=== PATIENT | male | born 1955 | race Native Hawaiian/Other Pacific Islander ===

== ENCOUNTER → 2017-09-11 07:53 | Outpatient (CLI) | payer OTHER, MEDICAID, SELFPAY ==
--- NOTE | 2017-09-11 | DI.MRI.S_ITS ---
PROCEDURE: MR CERVICAL SPINE WO CON INDICATIONS: Cervical Radiculopathy and pain TECHNIQUE: Noncontrast sagittal T1 spin echo and T2 fast spin echo, sagittal STIR, foraminal oblique sagittal T2 fast spin echo, and axial gradient echo or T2 fast spin echo through the cervical spine. COMPARISON: [facility], MR, C-SPINE WITHOUT CONTRAST, 02/13/2014, 11:06. FINDINGS: Image quality: Excellent. Alignment and Curvature: There is normal bony alignment. Bone Marrow: Marrow demonstrates normal overall signal. Anterior fusion of C3-C7 has been performed, as before. Spinal Cord: Visualized spinal cord has normal size. Focal region of high T2 signal intensity within the left mid cord at the C2 level is unchanged. No cerebellar tonsillar herniation. Paraspinous Soft Tissues: No paravertebral masses. Prevertebral soft tissues are normal in thickness. C2-C3: Disc desiccation and mild diffuse disc bulge. Bilateral facet hypertrophy. Mild canal stenosis. Mild foraminal stenosis bilaterally. No change. C3-C4: Status post fusion. Bilateral facet hypertrophy. Mild canal stenosis. Mild foraminal stenosis bilaterally. No change. C4-C5: Status post fusion. Bilateral facet hypertrophy. No significant canal stenosis. Moderate foraminal stenosis bilaterally. No change. C5-C6: Status post fusion. Bilateral facet hypertrophy. Mild canal stenosis. Mild foraminal stenosis bilaterally. No change. C6-C7: Status post fusion. Bilateral facet and uncovertebral hypertrophy. Mild canal stenosis. Moderate left and no right foraminal stenosis. No change. C7-T1: Disc desiccation. No significant canal, nor foraminal stenosis. IMPRESSION: 1. C3-C7 fusion, with mild multilevel canal stenoses throughout the fused levels. 2. Multilevel degenerative disc and facet disease. 3. Multilevel foraminal stenoses, worst on the left at C6-C7. Dictated by: Tarik Coronado M.D. on 09/11/2017 at 9:27 Approved by: Tarik Coronado M.D. on 09/11/2017 at 9:31
== END ==
PROVIDERS: PCP Physician Assistant Medical; Visit Provider Family Medicine
DX: M48.02 Spinal stenosis, cervical region (principal); Z98.1 Arthrodesis status; M50.30 Other cervical disc degeneration, unspecified cervical region; M47.812 Spondylosis without myelopathy or radiculopathy, cervical region; M99.71 Connective tissue and disc stenosis of intervertebral foramina of cervical region
CPT/HCPCS: 72141

== ENCOUNTER → 2017-12-05 08:26 | Outpatient (CLI) | payer OTHER, MEDICAID, SELFPAY ==
--- NOTE | 2017-12-05 | DI.CT.S_ITS ---
PROCEDURE: CT CERVICAL SPINE WO CON INDICATIONS: CERVICAL RADICULOPATHY PAINS DOWN ARMS TECHNIQUE: Noncontrast 3 mm thick sections acquired from the skull base to the T4 level. Sagittal and coronal reformats were then constructed. For radiation dose reduction, the following was used: automated exposure control, adjustment of mA and/or kV according to patient size. COMPARISON: [facility], MR, MR CERVICAL SPINE WO CON, 09/11/2017, 8:44. [facility], MR, C-SPINE WITHOUT CONTRAST, 02/13/2014, 11:06. [facility], CT, C-SPINE WITHOUT CONTRAST, 10/28/2012, 14:50. FINDINGS: Image quality: Excellent. Bones: No fractures or dislocations. Visualized superior ribs are intact. Extensive postoperative hardware changes are seen, from C3-C7. The screws appear well placed. The fixation plate anteriorly is well seated. No findings of hardware failure or hardware loosening can be seen in this patient. Disc spacers are seen throughout the fused region. C2-C3: Bridging anterior osteophytes are seen at this level, as on series 5 image 39. Minimal loss of disc height is seen. A mild degree of generalized disc osteophyte complex is seen. Moderate facet joint hypertrophy is seen. Minimal bilateral neural foraminal narrowing is seen. Mild central canal narrowing is seen. No significant change from the prior. C3-C4: Moderate generalized disc osteophyte complex is seen. Moderate facet joint hypertrophy is seen. There is mild to moderate right-sided and at least moderate left-sided neural foraminal narrowing. Moderate central canal narrowing is seen. These imaging findings are similar to the prior MRI images. C4-C5: There is moderate right-sided and moderate to severe left-sided neural foraminal narrowing seen. Moderate central canal narrowing is seen. When comparison is made with the prior examination, these findings are similar. C5-C6: Moderate generalized disc osteophyte complex is seen. There is mild to moderate left-sided and no significant right-sided neural foraminal narrowing seen. Mild central canal narrowing is seen. No significant change from the prior. C6-C7: Moderate generalized disc osteophyte complex is seen. There is moderate to severe left-sided and no significant right-sided neural foraminal narrowing seen. Mild central canal narrowing is seen. When comparison is made with the prior examination, these findings are similar. C7-T1: Bridging anterior osteophytes are seen at this level. Moderate loss of disc height is seen. No significant neural foraminal or central canal narrowing are seen. No significant change from the prior. Soft tissues: Prevertebral soft tissues are normal in thickness. No paravertebral hematomas. No apical pneumothoraces. Emphysematous changes are seen at the lung apices. IMPRESSION: Intact anterior hardware is seen from C3-C7. Multiple levels of degenerative change are seen, which are overall most prominent at C6-C7, with moderate to severe left-sided neural foraminal narrowing. Bridging anterior osteophytes are seen at C2-C3 and C7-T1. Dictated by: Michael Soares M.D. on 12/05/2017 at 9:08 Approved by: Michael Soares M.D. on 12/05/2017 at 9:20
== END ==
PROVIDERS: PCP Physician Assistant Medical; Visit Provider Neurological Surgery
DX: M50.30 Other cervical disc degeneration, unspecified cervical region (principal); M54.12 Radiculopathy, cervical region; M25.78 Osteophyte, vertebrae
CPT/HCPCS: 72125

== ENCOUNTER → 2018-11-12 08:08 | Outpatient (CLI) | payer OTHER, MEDICAID, SELFPAY ==
--- NOTE | 2018-11-12 | DI.RAD.S_ITS ---
PROCEDURE: XR CERVICAL SPINE 4V OR 5V INDICATIONS: Post laminectomy syndrome TECHNIQUE: 5 views of the cervical spine acquired. COMPARISON: [facility], CT, CT CERVICAL SPINE WO CON, 12/05/2017, 8:26. [facility], MR, MR CERVICAL SPINE WO CON, 09/11/2017, 8:44. [facility], MR, C-SPINE WITHOUT CONTRAST, 02/13/2014, 11:06. CR, SPINE CERVICAL COMP W/ FL/EX, 09/01/2013, 10:36. CR, SPINE CERVICAL 2 OR 3VW, 12/30/2012, 13:26. CR, SPINE CERVICAL 2 OR 3VW, 11/22/2012, 8:09. FINDINGS: Bones: No fractures or dislocations to the T1 level. Oblique images demonstrate no bony foraminal stenoses. There is expected postoperative alignment after anterior fusion bleeding from C3-C7. Soft tissues: No prevertebral soft tissue swelling. IMPRESSION: Normal alignment established after anterior fusion plating as discussed, no evidence for abnormal subluxation or penetration of fixation screws into the neural foramen or spinal canal. Dictated by: Houston Hannon M.D. on 11/15/2018 at 10:30 Approved by: Houston Hannon M.D. on 11/15/2018 at 10:32
== END ==
PROVIDERS: PCP Family Medicine; Visit Provider Physical Medicine & Rehabilitation
DX: M96.1 Postlaminectomy syndrome, not elsewhere classified (principal)
CPT/HCPCS: 72050

== ENCOUNTER → 2018-11-29 07:22 | Outpatient (CLI) | payer OTHER, MEDICAID, SELFPAY ==
[2018-11-29 08:09] LABS: Hematocrit 47.9 % (41-53); Hemoglobin 16.9 g/dL (13.5-17.5); Mean Corpuscular HGB Conc 35.3 % (30-36); Mean Corpuscular Hemoglobin 33.8 PG (26-34); Mean Corpuscular Volume 95.9 fL (80-100); Platelet Count 134 X10^3/uL (150-400); Red Blood Cell Count 4.99 X10^6/uL (4.5-5.9); Red Cell Distribution Width 14.2 % (11.6-14.8); White Blood Cell Count 4.5 X10^3/uL (4.5-11.0)
== END ==
PROVIDERS: PCP Family Medicine; Visit Provider Plastic Surgery
DX: Z01.810 Encounter for preprocedural cardiovascular examination (principal); G56.01 Carpal tunnel syndrome, right upper limb
CPT/HCPCS: 36415; 85027; 93005; 93010

== ENCOUNTER → 2019-01-03 06:56 | Outpatient (CLI) | payer OTHER, MEDICAID, SELFPAY ==
--- NOTE | 2019-01-03 | DI.RAD.S_ITS ---
PROCEDURE: XR THORACIC SPINE 3V INDICATIONS: THORACIC PAIN TECHNIQUE: 30 views of the thoracic spine were acquired. COMPARISON: None. FINDINGS: Bones: No fractures or dislocations. No suspicious bony lesions. Multilevel degenerative endplate sclerosis and spurring. Prominent anterior flowing osteophytes suggest diffuse idiopathic skeletal hyperostosis. Partially visualized cervical spine hardware Diffuse facet arthropathy. Lateral curvature of the spine. Soft tissues: No paravertebral stripe thickening. IMPRESSION: No fracture. Diffuse discogenic changes. Dictated by: Benny Salazar M.D. on 01/03/2019 at 10:07 Approved by: Benny Salazar M.D. on 01/03/2019 at 10:16
== END ==
PROVIDERS: PCP Family Medicine; Visit Provider Family Medicine
DX: M54.6 Pain in thoracic spine (principal); M47.814 Spondylosis without myelopathy or radiculopathy, thoracic region
CPT/HCPCS: 72072

== ENCOUNTER → 2020-03-31 09:14 | Outpatient (CLI) | payer OTHER, MEDICAID, SELFPAY ==
--- NOTE | 2020-03-31 09:15 | DI.RAD.S_ITS ---
PROCEDURE: XR CERVICAL SPINE 4V OR 5V INDICATIONS: UPDATE IMAGING TECHNIQUE: 5 views of the cervical spine were acquired. COMPARISON: [facility], CR, SPINE CERVICAL COMP W/ FL/EX, 09/01/2013, 10:36. [facility], CR, XR CERVICAL SPINE 4V OR 5V, 11/12/2018, 8:16. FINDINGS: Bones: No fractures or dislocations to the T1 level. No suspicious bony lesions. Loss of lordosis which could be related to muscle spasm, rigidity or simply positional. Prior multilevel ACDF from the C3 through the C7 level with fixation plates, screws and bone grafts in expected unchanged positions. Oblique views demonstrate mild bilateral multilevel mid and lower cervical spine neural foraminal narrowing. . Soft tissues: Prevertebral soft tissues are normal in thickness. IMPRESSION: 1. Stable multilevel ACDF. 2. Bilateral neural foraminal narrowing. Dictated by: Jarrod STAHL Interpreted: Alexandria Colby MD on 03/31/2020 at 10:13 Approved by: Alexandria Colby M.D. on 03/31/2020 at 16:58
== END ==
PROVIDERS: PCP Internal Medicine; Referring Provider Physical Medicine & Rehabilitation; Visit Provider Physical Medicine & Rehabilitation
DX: R51.9 Headache, unspecified; M48.02 Spinal stenosis, cervical region; M79.18 Myalgia, other site; G89.29 Other chronic pain; Z98.1 Arthrodesis status
CPT/HCPCS: 20552; 72050; J1040

== ENCOUNTER → 2020-10-13 13:45 | Outpatient (CLI) | payer OTHER, MEDICAID, SELFPAY ==
[2020-10-13 14:52] LABS: Alanine Aminotransferase 15 IU/L (<50); Aspartate Aminotransferase 27 IU/L (17-59); BUN Creatinine Ratio 21.1 (6-22); Blood Urea Nitrogen 15 mg/dL (9-20); Estimated Glomerular Filt Rate > 60.0 mL/min (>60)
== END ==
PROVIDERS: PCP Internal Medicine; Referring Provider Physician Assistant Medical; Visit Provider Physician Assistant Medical
DX: B35.1 Tinea unguium (principal)
CPT/HCPCS: 36415; 82565; 84450; 84460; 84520

== ENCOUNTER 2020-11-09 08:11 | Emergency (ER) | payer OTHER, MEDICAID, SELFPAY ==
[2020-11-09 08:32] VITALS: BP 174/84; PULSE 80; RESP 16; TEMP 36.8; O2SAT 99; BMI 26.5
--- NOTE | 2020-11-09 08:35 | ED.NEUROSD ---
HPI - Neuro Symptoms/Deficit General Chief Complaint: Weakness Stated Complaint: falls, balance is out, back/neck really hurting Time Seen by Provider: 11/09/20 08:19 Source: patient Mode of arrival: Wheelchair Limitations: no limitations History of Present Illness HPI Narrative: The patient is a 65-year-old male fusion in 2013 is with cervicogenic headaches currently being treated for chronic neck pain with dry needling by PCP. He is a bit confused on his time but his legs gave out at least 2 ago. He has noticed that it is difficult for him to stand and get around he has since fallen a couple of times. He has obvious left-sided facial droop. He feels like his left side is weaker than the right which certainly is. He also complains that he lost the taste buds in his mouth. He says nothing taste right. It all seemed to happen at about the same time His he denies any fever or chills no chest pain shortness of breath nausea or vomiting. Patient actually states that he had cervical fusion multiple years ago and broke his neck at that time he had a left-sided weakness however today and the last few days the left side has been significantly worse. Onset (ago): day(s) Location: left face, left arm, left leg and ataxia Relieving factors: none Related Data Previous Rx's Medication Instructions Recorded Disabled Parking #1 each 11/17/19 zolpidem 10 mg tablet 10 mg PO BEDTIME #30 tab 09/28/20 fluticasone propionate 0.05 % 1 applic TOP BID #60 g 10/04/20 topical cream Allergies Allergy/AdvReac Type Severity Reaction Status Date / Time No Known Drug Allergies Allergy Verified 10/28/20 10:58 Review of Systems Review of Systems Narrative: GENERAL: Denies chills, fatigue, malaise, fever, sweats, travel HEENT: Denies sinus pain, ear pain, sore throat, difficulty swallowing, neck pain RESPIRATORY: Denies dyspnea, cough, wheezing, hemoptysis, sputum. CARDIOVASCULAR: Denies chest pain, palpitations, orthopnea, edema GASTROINTESTINAL: Denies nausea, vomiting, abdominal pain, diarrhea, constipation, melena. : Denies dysuria, frequency, incontinence, hematuria, urinary retention, flank pain. MUSCULOSKELETAL: Denies weakness, joint pain, or bony pain SKIN: No rash, no erythema, no pruritus NEUROLOGIC: See HPI PSYCHIATRIC: No concerning psychosocial issues. 12 point review of systems is negative except for those stated above and HPI Patient History Medical History (Updated 11/09/20 @ 12:28 by Octavia Sales DO) Cervicogenic headache Chronic neck pain COPD (chronic obstructive pulmonary disease) Essential hypertension Myofascial pain Surgical History (Updated 08/30/20 @ 13:54 by Gildardo Napier MD) S/P cervical spinal fusion Status post cervical spinal fusion Family History Mother No problems noted. Social History Smoking Status: Current every day smoker Smoking Status: Current every day smoker Exam Initial Vital Signs Initial Vital Signs: Vital Signs Temperature 98.3 F 11/09/20 08:32 Pulse Rate 80 11/09/20 08:32 Respiratory Rate 16 11/09/20 08:32 Blood Pressure 174/84 H 11/09/20 08:32 Pulse Oximetry 99 11/09/20 08:32 GENERAL: Alert 65-year-old male HEENT: Head atraumatic,EOMI, pupils reactive, left facial droop CARDIOVASCULAR: Regular rate and rhythm without murmurs, rubs or gallops. RESPIRATORY: Breath sounds equal bilaterally, no wheezes rales or rhonchi. ABDOMEN: Soft, nontender. Normoactive bowel sounds all 4 quadrants. No guarding or rebound. EXTREMITIES: Normal range of motion, no clubbing or edema. Neurovascularly intact NEUROLOGICAL: Alert and oriented x4. Good pdatzj-ev-imqe, good iehm-wv-kqov, left leg drift does not go to gurney left arm drift does not go to gurney, no dysarthria or aphasia, sensation in tact to soft touch slightly decreased in left leg, no visual changes, left facial droop SKIN: Warm, dry, no laceration, no petechiae, no rashes or lesions. Scores NIH Stroke Scale Level of Conciousness: Alert, keenly responsive Ask month/age: Answers both questions correctly. Open/close eyes, close hand: Performs both tasks correctly Best gaze horizontal: Normal Visual mercado: No visual loss Facial palsy: Partial paralysis, total or near total paralysis of lower face Left arm drift: Drifts down, not to bed Right arm drift: No drift for full 10 sec Left leg drift: Drifts down, not to bed Right leg drift: No drift for full 5 sec Limb ataxia: Absent Sensory on face/arms/legs: Mild to moderate sensory loss, can tell touch Best language: No aphasia, normal Dysarthria: Normal Extinction or inattention: No abnormality Total NIH Stroke scale score: 5 Course Orders Ordered: ED Orders 11/09/20 10:50 Urine Drug Screen, Rapid Stat 11/09/20 12:31 CT angio head and neck Stat Discontinued Medications Aspirin (Aspirin 81 Mg Chew Tab) 324 mg PO NOW ONE Stop: 11/09/20 08:34 Last Admin: 11/09/20 09:22 Dose: 324 mg Documented by: CVANCE Vital Signs Vital signs: Vital Signs - 8 hr 11/09/20 12:54 11/09/20 14:15 Pulse Rate 79 100 H Respiratory Rate 20 18 Blood Pressure 157/90 H 171/98 H Pulse Oximetry 98 98 MDM - Neuro Symptoms/Deficit Lab Data Result diagrams: 11/09/20 08:31 11/09/20 08:31 Labs: Lab Results 11/09/20 11/09/20 11/09/20 Range/Units 08:31 08:31 08:31 WBC 7.0 (4.5-11.0) X10^3/uL RBC 5.09 (4.5-5.9) X10^6/uL Hgb 17.1 (13.5-17.5) g/dL Hct 49.6 (41-53) % MCV 97.4 (80-100) fL MCH 33.5 (26-34) PG MCHC 34.4 (30-36) % RDW 13.7 (11.6-14.8) % Plt Count 121 L (150-400) X10^3/uL Neut % (Auto) 55.9 (50-75) % Lymph % (Auto) 32.9 (25-40) % Desha % (Auto) 5.6 (3-14) % Eos % (Auto) 5.2 H (2-4) % Baso % (Auto) 0.4 (0-2) % Neut # (Auto) 3900 (3843-6686) /uL Lymph # (Auto) 2300 (3789-5761) /uL Desha # (Auto) 400 (0-900) /uL Eos # (Auto) 400 (0-450) /uL Baso # (Auto) 0 (0-100) /uL PT (10.1-12.7) SECONDS INR (0.9-1.3) APTT (26.4-36.2) SECONDS Sodium 138 (137-145) mmol/L Potassium 4.4 (3.4-5.1) mmol/L Chloride 109 H (98-107) mmol/L Carbon Dioxide 25 (22-32) mmol/L BUN 14 (9-20) mg/dL Creatinine 0.70 (0.66-1.25) mg/dL Estimated GFR > 60.0 (>60) mL/min BUN/Creatinine Ratio 20.0 (6-22) Glucose 98 (80-110) mg/dL Calcium 9.2 (8.4-10.2) mg/dL Total Bilirubin 0.8 (0.2-1.3) mg/dL AST 32 (17-59) IU/L ALT 18 (<50) IU/L Alkaline Phosphatase 86 (38-126) U/L Total Creatine Kinase 92 (55-170) U/L CK-MB (CK-2) TNP CK-MB (CK-2) Rel Index TNP Troponin I < 0.012 (0.01-0.034) ng/mL Total Protein 7.2 (6.3-8.2) g/dL Albumin 4.2 (3.5-5.0) g/dL Globulin 3.0 (1.7-4.1) g/dL Albumin/Globulin Ratio 1.4 (1.0-2.8) Urine Color Cancelled Urine Appearance Cancelled Urine pH Cancelled Ur Specific [place] Cancelled Urine Protein Cancelled Urine Glucose (UA) Cancelled Urine Ketones Cancelled Urine Occult Blood Cancelled Urine Nitrate Cancelled Urine Bilirubin Cancelled Urine Urobilinogen Cancelled Ur Leukocyte Esterase Cancelled Urine RBC Cancelled Urine WBC Cancelled Ur Squamous Epith Cells Cancelled Ur Transition Epith Cell Cancelled Ur Renal Epithelial Cell Cancelled Calcium Oxalate Crystal Cancelled Uric Acid Crystals Cancelled Triple Phos Crystals Cancelled Other Crystals Cancelled Amorphous Sediment Cancelled Urine Bacteria Cancelled Hyaline Casts Cancelled Granular Casts Cancelled RBC Casts Cancelled WBC Casts Cancelled Other Casts Cancelled Urine Mucus Cancelled Urine Trichomonas Cancelled Urine Yeast Cancelled Urine Sperm Cancelled Ur Culture Indicated? Cancelled Micro UA Comment Cancelled U Opiates 300ng/mL cut (Negative) Ur Oxycodone Screen (Negative) Urine Methadone Screen (Negative) Ur Barbiturates Screen (Negative) U Tricyclic Antidepress (Negative) Ur Phencyclidine Scrn (Negative) Ur Amphetamines Screen (Negative) U Methamphetamines Scrn (Negative) Ur MDMA Scrn (Ecstasy) (Negative) U Benzodiazepines Scrn (Negative) Urine Cocaine Screen (Negative) U Marijuana (THC) Screen (Negative) SARS-CoV-2 (PCR) (Negative) 11/09/20 11/09/20 11/09/20 Range/Units 08:49 09:02 10:50 WBC (4.5-11.0) X10^3/uL RBC (4.5-5.9) X10^6/uL Hgb (13.5-17.5) g/dL Hct (41-53) % MCV (80-100) fL MCH (26-34) PG MCHC (30-36) % RDW (11.6-14.8) % Plt Count (150-400) X10^3/uL Neut % (Auto) (50-75) % Lymph % (Auto) (25-40) % Desha % (Auto) (3-14) % Eos % (Auto) (2-4) % Baso % (Auto) (0-2) % Neut # (Auto) (1519-4082) /uL Lymph # (Auto) (2483-1063) /uL Desha # (Auto) (0-900) /uL Eos # (Auto) (0-450) /uL Baso # (Auto) (0-100) /uL PT 11.7 (10.1-12.7) SECONDS INR 1.1 (0.9-1.3) APTT 33 (26.4-36.2) SECONDS Sodium (137-145) mmol/L Potassium (3.4-5.1) mmol/L Chloride (98-107) mmol/L Carbon Dioxide (22-32) mmol/L BUN (9-20) mg/dL Creatinine (0.66-1.25) mg/dL Estimated GFR (>60) mL/min BUN/Creatinine Ratio (6-22) Glucose (80-110) mg/dL Calcium (8.4-10.2) mg/dL Total Bilirubin (0.2-1.3) mg/dL AST (17-59) IU/L ALT (<50) IU/L Alkaline Phosphatase (38-126) U/L Total Creatine Kinase (55-170) U/L CK-MB (CK-2) CK-MB (CK-2) Rel Index Troponin I (0.01-0.034) ng/mL Total Protein (6.3-8.2) g/dL Albumin (3.5-5.0) g/dL Globulin (1.7-4.1) g/dL Albumin/Globulin Ratio (1.0-2.8) Urine Color Urine Appearance Urine pH Ur Specific [place] Urine Protein Urine Glucose (UA) Urine Ketones Urine Occult Blood Urine Nitrate Urine Bilirubin Urine Urobilinogen Ur Leukocyte Esterase Urine RBC Urine WBC Ur Squamous Epith Cells Ur Transition Epith Cell Ur Renal Epithelial Cell Calcium Oxalate Crystal Uric Acid Crystals Triple Phos Crystals Other Crystals Amorphous Sediment Urine Bacteria Hyaline Casts Granular Casts RBC Casts WBC Casts Other Casts Urine Mucus Urine Trichomonas Urine Yeast Urine Sperm Ur Culture Indicated? Micro UA Comment U Opiates 300ng/mL cut Negative (Negative) Ur Oxycodone Screen Negative (Negative) Urine Methadone Screen Negative (Negative) Ur Barbiturates Screen Negative (Negative) U Tricyclic Antidepress Negative (Negative) Ur Phencyclidine Scrn Negative (Negative) Ur Amphetamines Screen Negative (Negative) U Methamphetamines Scrn Negative (Negative) Ur MDMA Scrn (Ecstasy) Negative (Negative) U Benzodiazepines Scrn Negative (Negative) Urine Cocaine Screen Negative (Negative) U Marijuana (THC) Screen Negative (Negative) SARS-CoV-2 (PCR) Negative (Negative) Point of Care Testing Glucose POC 78 Urine Dip Bedside Urine Glucose Negative Bedside Urine Bilirubin - Negative Bedside Urine Ketone - Negative Urine Specific [place] 1.010 Bedside Urine Occult Blood +/- Bedside Urine pH 6.5 Bedside Urine Protein - Negative Bedside Urine Urobilinogen +/- 1mg Bedside Urine Nitrite - Negative Bedside Urine Leukocytes - Negative Esterase Imaging Data CTA - brain/neck: Radiologist's Impression: PROCEDURE: CT ANGIO HEAD AND NECK INDICATIONS: CVA TECHNIQUE: Pre-contrast 4.5 mm thick sections acquired from the foramen magnum to the vertex. After the administration of intravenous contrast, 1 mm thick sections acquired from the aortic arch through the [place] of [place]. Post-contrast 4.5 mm thick sections then re-acquired from the foramen magnum to the vertex. 3-dimensional oxhbgmj-bdmcvbkgq-eziusiniyy (MIP) and/or volume rendering reformats were acquired of the central intracranial vasculature and neck separately. COMPARISON: [facility], MR, MR STROKE, 11/09/2020, 11:09. [facility], CT, HEAD WITHOUT CONTRAST, 01/17/2013, 14:38. CT, ANGIO NECK WITH CONTRAST, 10/31/2012, 13:46. [facility], CT, HEAD WITHOUT CONTRAST, 10/28/2012, 14:50. [facility], MR, BRAIN W&W/O CONTRAST, 08/15/2012, 9:42. FINDINGS: Image quality: Excellent. BRAIN: CSF spaces: Ventricles are normal in size and shape. Basal cisterns are patent. No extra-axial fluid collections. Brain: Hypodensities noted in the right frontal and parietal subcortical white matter compatible with known acute/subacute infarcts. No midline shift. No intracranial bleeds or masses. Du-white matter interface appears intact. Skull and face: Calvarium and facial bones appear intact, without suspicious lesions. Orbits appear normal. Sinuses: Mucosal thickening noted in the left maxillary sinus. The mastoids are clear. HEAD CT ANGIOGRAPHY: Anterior circulation: Intracranial internal carotid arteries are normal in size and flow. The flow within the paired anterior cerebral arteries is normal and symmetric. The flow within the left middle cerebral artery is normal. Thrombus identified in the distal M1 segment of the right middle cerebral artery which causes partial occlusion. There is diminished flow in the M2 branches of the right middle cerebral artery distal to the thrombus in the distal M1 segment.. The anterior communicating artery is seen. No aneurysms are seen. Posterior circulation: Visualized portions of the vertebral arteries demonstrate normal caliber, and join to form a normal appearing basilar artery. Flow within the posterior cerebral arteries is normal and symmetric. No aneurysms are seen. Dural sinuses demonstrate normal postcontrast enhancement. NECK CT ANGIOGRAPHY: Carotid system: The great vessels demonstrate a conventional anatomy as they arise from the aortic arch. The origins of the common carotid arteries appear patent. The common carotid arteries demonstrate normal caliber and courses. Atherosclerotic calcifications noted in the origins of the internal carotid arteries bilaterally which causes less than 50% stenosis of the vessels. Posterior circulation: The origins of the vertebral arteries both appear widely patent. The more superior extracranial portions of both vertebral arteries also demonstrate normal courses and calibers. They join to form a normal appearing basilar artery. Soft tissues: Visualized neck soft tissues demonstrate no suspicious abnormalities. Emphysematous changes noted in the lung apices. Bones: No suspicious bony lesions. Spine degenerative disc disease and facet arthropathy. Status post C3-C7 ACDF. Visualized cervical spine appears normally aligned. IMPRESSION: 1. Acute/subacute right frontal and right parietal infarcts. 2. No intracranial hemorrhage. 3. Partially occlusive thrombus in the distal M1 segment of the right middle cerebral artery with reduced flow in the M2 branches of the right middle cerebral artery distal to the thrombus. 4. Less than 50% stenosis of the origins of the internal carotid arteries. Area 5. Vertebral arteries are fully patent. Findings discussed with Dr. Sales on November 09, 2020 at 1:17 p.m.. Any quantitative measurements of stenosis were performed using NASCET criteria. Dictated by: Abi Garcia MD, PhD on 11/09/2020 at 12:51 MR Stroke: Radiologist's Impression: PROCEDURE: MR STROKE Pre- and post-contrast brain MRI, non-contrast brain MR angiogram, pre- and postcontrast neck MR angiogram INDICATIONS: left sided weakness x 2 days TECHNIQUE: Brain: Noncontrast axial T1 spin echo, axial T2 fast spin echo, sagittal and axial FLAIR, coronal T2 fast spin echo, axial gradient echo, axial diffusion and ADC through the brain. After the administration of contrast, axial 3D VIBE of the cranial vasculature and brain. Brain MRA: Non-contrast 3-D time of flight MR angiogram, with multiple mnalzyz-ihpkavkxo-rdwmuqspsa (MIP) reformats performed. Neck MRA: Axial and sagittal TruFISP through the neck. Coronal dynamic MR angiogram during administration of contrast in the arterial and venous phases, with 3-dimenstional mbebxab-ywukvkpeq-okkmicwcwf (MIP) reformats constructed from subtraction images. COMPARISON: CT, ANGIO NECK WITH CONTRAST, 10/31/2012, 13:46. MR, BRAIN WITHOUT CONTRAST, 09/25/2012, 18:10. [facility], MR, BRAIN W&W/O CONTRAST, 08/15/2012, 9:42. FINDINGS: Image quality: Excellent. BRAIN: CSF spaces: Ventricles are normal in size and shape. Basal cisterns are patent. No extra-axial fluid collections. Brain: No intracranial bleeds or mass effects. Du-white matter interface is normal. Diffusion weighted images show areas of hypointensity within the right frontal lobe extending into the posterior parietal occipital lobe. These areas demonstrate corresponding hypointense ADC signal as well as hyperintense T2/FLAIR signal. Brainstem appears normal. Normal intravascular flow voids are present. No abnormal intracranial enhancement. Skull and face: Calvarial marrow signal is normal. Orbits appear normal. Sinuses: Sinuses demonstrate mild scattered areas of mucosal thickening most notably maxillary and ethmoid sinuses. BRAIN MR ANGIOGRAM: Anterior circulation: Intracranial internal carotid arteries are normal in size and enhancement. Anterior cerebral artery is patent. Left A1 segment is hypoplastic suggestive of congenital variation. Levm-us-tqicfl images demonstrate no visualized signal within the distal M1 segment on the right. No stenoses, occlusions, or aneurysms. Posterior circulation: The visualized portions of the vertebral arteries demonstrate normal caliber, and join to form a normal appearing basilar artery. The flow within the posterior cerebral arteries is normal and symmetric. No stenoses, occlusions, or aneurysms. NECK MR ANGIOGRAM: Carotids: Great vessels demonstrate a conventional anatomy as they arise from the aortic arch. The origins of the common carotid arteries appear patent. The calibers and courses of both common carotid arteries are normal. The bifurcation regions appear normal bilaterally. The internal carotid arteries demonstrate normal course and caliber. Posterior circulation: The origins of the vertebral arteries appear patent. More superior portions of both vertebral arteries demonstrate normal course and caliber, and join to form a normal appearing basilar artery. Miscellaneous: Subclavian arteries appear patent. Pre-contrast images through the neck show no soft tissue abnormalities. IMPRESSION: 1. Extensive restricted diffusion within the right frontal and parietal occipital lobes, consistent with acute/subacute ischemia. 2. Loss of signal within the distal right M1 segment on agmx-aw-rmetrw images most consistent with occlusion, although slow flow cannot be definitively excluded. CTA is recommended as indicated. 3. No areas of hemodynamically significant stenosis, vascular occlusion or aneurysmal dilation within the neck vasculature. Dictated by: Rajani Mariano M.D. on 11/09/2020 at 11:49 ECG Data Interpretation: Normal sinus rhythm rate 62 NJ interval 156 QRS [address] changes MDM Narrative Medical decision making narrative: CT scanner went down just prior to arrival for the next 4 hours. Patient has been having symptoms ongoing for an unknown number of days. He certainly is not a tPA candidate. Will get an MRI. He is not on any anticoagulation he did not have any head trauma during his falls. Although she did fall into a coffee table once but did not even his head or lose consciousness. He states that his legs simply are weak and gave out on him. At this time I do not see is beneficial to transfer him for noncontrasted head CT, MR should be available soon. MRI does confirm stroke, in CT angio is it confirms occlusion of M1 with thrombus. Patient has had symptoms greater than 24 hours. He certainly is not a tPA candidate I do not believe him to be a large vessel occlusion is candidate. Hospitalist is called to evaluate but does recommend talking with Neurology in regards to large vessel occlusion even though he is out of the window 1400 Dr. Goyal, tele Stroke Neurology updated on patient's symptoms test results. He evaluates patient himself over the tele stroke. He will consult with Interventional Neurology. May need CT perfusion scan before candidate for thrombectomy but thinks it may be possible despite it being multiple days. He returns phone call and states that patient is a candidate and recommended transfer to [address] I have explained patient's signs and symptoms in test results to him. Confirming that he has a stroke. He is in quite a bit of denial, and confused. His seems to understand the severity of it. I have explained treatment options including thrombectomy versus staying at [facility] for further testing physical therapy and likely rehab. He is able to ambulate here but does need some assistance. He is quite adamant that he needs to talk to his family. He and his parents are very close. I offered them to come to the emergency department I have offered family conference call with me or not me included, he is not agreeable to that. He does not want to be transferred to [facility]. I have explained that this is likely a very small window where they would be able to do the thrombectomy. He and his are aware of permanent disability. At this time how he does not seem to care. I have also explained to both and patient that the stroke has probably not completed and will likely get worse. Have drawn pictures for them to help him understand. At this time he is adamant about leaving and going to talk to his family about options. I have explained to both he and his that they will be leaving against medical advice. They are welcome to return to the emergency department at any time. They were given discharge instructions. The patient is clinically sober, free from distracting injury, appears to have intact insight, judgment and reason. Does not meet criteria for involuntary hospitalization. Patient has the capacity to make decisions. [facility] has been canceled. Critical Care Time Critical Care Time Critical Care Time: Yes Total Critical Care Time: 120 Attestation: The high probability of a clinically significant, sudden or life threatening deterioration of the neurovascular system(s) required my full and direct attention, intervention and personal management. The aggregate critical care time was 120 minutes. This time is in addition to time spent performing reported procedures but includes the following: [x] Data Review and interpretation [x] Patient assessment and monitoring of vital signs [x] Documentation [x] Medication orders and management Discharge Plan Departure Patient Disposition: Left Against Medical Advice Clinical Impression: CVA (cerebral vascular accident) Instructions: DI for Stroke-Ischemic Activity Restrictions/Additional Instructions: You are having a very large stroke. It will likely progress to the point where you have permanent disability and inability to move your left arm and left leg. You are leaving against medical advice. You were offered admission to this hospital along with rehab further medical treatment and further studies. You were also offered transfer to [facility] for possible treatment and retrieval of blood clot in your brain causing this stroke You may return to the emergency department at any time however the procedure will unlikely be available. Prescriptions: No Action zolpidem 10 mg tablet 10 mg PO BEDTIME Qty: 30 RF: 1 fluticasone propionate 0.05 % cream 1 applic TOP BID Qty: 60 RF: 1 (DME) Disabled Parking Qty: 1 RF: 0 Referrals: Guevara Schneider DO [Primary Care Provider] - Stand Alone Forms: Against Medical Advice
[2020-11-09 08:45] LABS: Add Manual Diff / Slide Review NO; Basophils Absolute Auto 0 /uL (0-100); Basophils Percent Auto 0.4 % (0-2); Eosinophils Absolute Auto 400 /uL (0-450); Eosinophils Percent Auto 5.2 % (2-4); Hematocrit 49.6 % (41-53); Hemoglobin 17.1 g/dL (13.5-17.5); Lymphocytes Absolute Auto 2300 /uL (1100-4500); Lymphocytes Percent Auto 32.9 % (25-40); Mean Corpuscular HGB Conc 34.4 % (30-36); Mean Corpuscular Hemoglobin 33.5 PG (26-34); Mean Corpuscular Volume 97.4 fL (80-100); Monocytes Absolute Auto 400 /uL (0-900); Monocytes Percent Auto 5.6 % (3-14); Neutrophils Absolute Auto 3900 /uL (1500-7000); Neutrophils Percent Auto 55.9 % (50-75); Platelet Count 121 X10^3/uL (150-400); Red Blood Cell Count 5.09 X10^6/uL (4.5-5.9); Red Cell Distribution Width 13.7 % (11.6-14.8)
[2020-11-09 08:53] LABS: Alanine Aminotransferase 18 IU/L (<50); Albumin 4.2 g/dL (3.5-5.0); Albumin Globulin Ratio 1.4 (1.0-2.8); Alkaline Phosphatase 86 U/L (38-126); Aspartate Aminotransferase 32 IU/L (17-59); Bilirubin Total 0.8 mg/dL (0.2-1.3); Blood Urea Nitrogen 14 mg/dL (9-20); Calcium 9.2 mg/dL (8.4-10.2); Carbon Dioxide 25 mmol/L (22-32); Chloride 109 mmol/L (98-107); Creatine Kinase 92 U/L (55-170); Estimated Glomerular Filt Rate > 60.0 mL/min (>60); Glucose 98 mg/dL (80-110); HEMOLYSIS 17 (0-50); Potassium 4.4 mmol/L (3.4-5.1); Sodium 138 mmol/L (137-145); Total Protein 7.2 g/dL (6.3-8.2)
[2020-11-09 09:03] LABS: Troponin I < 0.012 ng/mL (0.01-0.034)
[2020-11-09 09:08] LABS: INR 1.1 (0.9-1.3); Prothrombin Time 11.7 SECONDS (10.1-12.7)
[2020-11-09 09:11] LABS: PTT Partial Thromboplastin Tim 33 SECONDS (26.4-36.2)
[2020-11-09] MEDS: ASPIRIN 81 MG CHEW TAB 324 MG PO (09:22)
[2020-11-09 09:47] VITALS: BP 171/87; PULSE 69; RESP 20; O2SAT 99
[2020-11-09 10:02] LABS: COVID19 - ADMIT (NP swab/PCR) Negative (Negative)
[2020-11-09 11:11] LABS: UR Morphine/Opiate cutoff 300 Negative (Negative); Ur Creatinine Normal (Normal); Ur Specific Gravity Normal (Normal); Urine Amphetamines Negative (Negative); Urine Barbiturates Negative (Negative); Urine Benzodiazepines Negative (Negative); Urine Cocaine Negative (Negative); Urine MDMA Negative (Negative); Urine Methadone Negative (Negative); Urine Methamphetamines Negative (Negative); Urine Oxycodone Negative (Negative); Urine Phencyclidine Negative (Negative); Urine Tetrahydrocannabinol Negative (Negative); Urine Tricyclic Antidepressant Negative (Negative); Urine pH Normal (Normal)
--- NOTE | 2020-11-09 12:31 | DI.CT.S_ITS ---
PROCEDURE: CT ANGIO HEAD AND NECK INDICATIONS: CVA TECHNIQUE: Pre-contrast 4.5 mm thick sections acquired from the foramen magnum to the vertex. After the administration of intravenous contrast, 1 mm thick sections acquired from the aortic arch through the [place] of [place]. Post-contrast 4.5 mm thick sections then re-acquired from the foramen magnum to the vertex. 3-dimensional getezei-gwilbgghd-pftdkmtxgw (MIP) and/or volume rendering reformats were acquired of the central intracranial vasculature and neck separately. COMPARISON: [facility], MR, MR STROKE, 11/09/2020, 11:09. [facility], CT, HEAD WITHOUT CONTRAST, 01/17/2013, 14:38. CT, ANGIO NECK WITH CONTRAST, 10/31/2012, 13:46. [facility], CT, HEAD WITHOUT CONTRAST, 10/28/2012, 14:50. [facility], MR, BRAIN W&W/O CONTRAST, 08/15/2012, 9:42. FINDINGS: Image quality: Excellent. BRAIN: CSF spaces: Ventricles are normal in size and shape. Basal cisterns are patent. No extra-axial fluid collections. Brain: Hypodensities noted in the right frontal and parietal subcortical white matter compatible with known acute/subacute infarcts. No midline shift. No intracranial bleeds or masses. Du-white matter interface appears intact. Skull and face: Calvarium and facial bones appear intact, without suspicious lesions. Orbits appear normal. Sinuses: Mucosal thickening noted in the left maxillary sinus. The mastoids are clear. HEAD CT ANGIOGRAPHY: Anterior circulation: Intracranial internal carotid arteries are normal in size and flow. The flow within the paired anterior cerebral arteries is normal and symmetric. The flow within the left middle cerebral artery is normal. Thrombus identified in the distal M1 segment of the right middle cerebral artery which causes partial occlusion. There is diminished flow in the M2 branches of the right middle cerebral artery distal to the thrombus in the distal M1 segment.. The anterior communicating artery is seen. No aneurysms are seen. Posterior circulation: Visualized portions of the vertebral arteries demonstrate normal caliber, and join to form a normal appearing basilar artery. Flow within the posterior cerebral arteries is normal and symmetric. No aneurysms are seen. Dural sinuses demonstrate normal postcontrast enhancement. NECK CT ANGIOGRAPHY: Carotid system: The great vessels demonstrate a conventional anatomy as they arise from the aortic arch. The origins of the common carotid arteries appear patent. The common carotid arteries demonstrate normal caliber and courses. Atherosclerotic calcifications noted in the origins of the internal carotid arteries bilaterally which causes less than 50% stenosis of the vessels. Posterior circulation: The origins of the vertebral arteries both appear widely patent. The more superior extracranial portions of both vertebral arteries also demonstrate normal courses and calibers. They join to form a normal appearing basilar artery. Soft tissues: Visualized neck soft tissues demonstrate no suspicious abnormalities. Emphysematous changes noted in the lung apices. Bones: No suspicious bony lesions. Spine degenerative disc disease and facet arthropathy. Status post C3-C7 ACDF. Visualized cervical spine appears normally aligned. IMPRESSION: 1. Acute/subacute right frontal and right parietal infarcts. 2. No intracranial hemorrhage. 3. Partially occlusive thrombus in the distal M1 segment of the right middle cerebral artery with reduced flow in the M2 branches of the right middle cerebral artery distal to the thrombus. 4. Less than 50% stenosis of the origins of the internal carotid arteries. Area 5. Vertebral arteries are fully patent. Findings discussed with Dr. Sales on November 09, 2020 at 1:17 p.m.. Any quantitative measurements of stenosis were performed using NASCET criteria. Dictated by: Abi Garcia MD, PhD on 11/09/2020 at 12:51 Approved by: Abi Garcia MD, PhD on 11/09/2020 at 13:20
[2020-11-09 12:54] VITALS: BP 157/90; PULSE 79; RESP 20; O2SAT 98
[2020-11-09 14:15] VITALS: BP 171/98; PULSE 100; RESP 18; O2SAT 98
--- NOTE | 2020-11-09 14:26 | PC.NURSE ---
Witness to patient and Dr Sales speaking at length about pt's condition and worsening stroke. Pt decided he wants to leave AMA due to not being able to speak to his family in person. Offered family conference over the phone and offered to have family members come to have a family conference with family and physician. Pt declining offers. states my family is very close and i need to speak to them before making decisions Advised that his stroke will worsen per neurologist and emergency physician and he can end up with permanent disability, paralysis, etc. Pt aware and agreeable. DC'd out of ED with wheelchair and mother. AMA paperwork signed.
== END 2020-11-09 14:31 | disposition left against medical advice (07) ==
PROVIDERS: Emergency Provider Emergency Medicine; PCP Family Medicine
DX: I63.9 Cerebral infarction, unspecified (principal); R27.0 Ataxia, unspecified; Z20.822 Contact with and (suspected) exposure to COVID-19
CPT/HCPCS: 70496; 70498; 70548; 70553; 80053; 80305; 81003; 82550; 82962; 84484; 85025; 85610; 85730; 87635; 93005; 93010; 99285; 99291; 99292; C9803; Q9967

== ENCOUNTER 2021-01-24 09:45 | Outpatient (RCR) | payer OTHER, MEDICAID, SELFPAY ==
--- NOTE | 2020-11-15 17:46 | PT.OIE ---
Current Diagnoses Cerebral infarction, unspecified (11/15/20) Foot drop, left foot (11/15/20) Paralytic gait (11/15/20) Other abnormalities of gait and mobility (11/15/20) Weakness (11/15/20) Past Medical History (Last Updated 11/11/20 @ 09:24 by Guevara Schneider DO) Cervicogenic headache Chronic neck pain COPD (chronic obstructive pulmonary disease) Essential hypertension Myofascial pain S/P cervical spinal fusion Status post cervical spinal fusion Weakness of left side of body Past Surgical History (Last Updated 08/30/20 @ 13:54 by Gildardo Napier MD) S/P cervical spinal fusion Status post cervical spinal fusion Visit Care Team Role Provider Type Guevara Schneider DO Attending Provider Physician Primary Care Provider Referring Provider Specialty: [facility] Address: [address] [place] [address] Email: Physical Therapy Initial Evaluation PT-OP-A Visit Information Start: 11/15/20 17:00 Freq: Status: Active Protocol: Document 11/15/20 16:00 DCW (Rec: 11/15/20 17:20 DCW [id number]) Out-Patient Physical Therapy Visit Information Visit Information Visit Type Initial Evaluation Visit Start Time 16:00 Visit Stop Time 16:50 Total Visit Minutes 50 Visit Number 1 Number of INSTRUMENT SHOP SUPERVISOR Visits 0 Evaluation Information Evaluation Date 11/15/20 PT-OP-B Current Condition Start: 11/15/20 17:00 Freq: Status: Active Protocol: Document 11/15/20 16:00 DCW (Rec: 11/15/20 17:20 DCW [id number]) Current Condition History of Current Condition Onset Date 11/09/20 Current Complaints CVA, weakness, imbalance History of Current Condition Pt is a 65 year old male six days s/p CVA. Pt came to [facility] ED on 11/09/20 with multiple falls, confusion , left-sided weakness, left facial droop, and sudden loss of taste. MRI showed restricted diffusion of R frontal, parietal, and occipital lobes, and pt was diagnosed with a CVA. Attending physician attempted to transfer pt to [facility] for treatment, however pt at that time refused and left the hospital AMA. Pt followed up with his PCP on 11/11/20, who referred him to PT for stroke rehab. Pt arrives to PT in a wheelchair. Notes he frequently walks without an assistive device at home, however uses his for stability. Pt reports his balance has been affected, and his left side is weak. Pt notes no sensory changes in his left side, but is unsure if he has noticed any visual changes. Prior Treatments and Tests Brain MRI: IMPRESSION: 1. Extensive restricted diffusion within the right frontal and parietal occipital lobes, consistent with acute/subacute ischemia. 2. Loss of signal within the distal right M1 segment on [id number] images most consistent with occlusion, although slow flow cannot be definitively excluded. CTA is recommended as indicated. 3. No areas of hemodynamically significant stenosis, vascular occlusion or aneurysmal dilation within the neck vasculature. Per: Rajani Mariano M.D. on 2020 Head/Neck CTA: IMPRESSION: 1. Acute/subacute right frontal and right parietal infarcts. 2 . No intracranial hemorrhage. 3. Partially occlusive thrombus in the distal M1 segment of the right middle cerebral artery with reduced flow in the M2 branches of the right middle cerebral artery distal to the thrombus. 4. Less than 50% stenosis of the origins of the internal carotid arteries. Area 5. Vertebral arteries are fully patent. Per: Abi Garcia MD, PhD on 11/09/2020 Treatment Goals Patient/Caregiver Goals Pt wants to get back to mobilizing independently. Prior Functional Status Baseline Function- ADL's Independent Baseline Function- Mobility Independent PT-OP-C Subjective Start: 11/15/20 17:20 Freq: Status: Active Protocol: Document 11/15/20 16:00 DCW (Rec: 11/15/20 17:22 DCW [id number]) OP-PT Subjective Patient Comments Patient Comments I want to get to work and get back to normal. PT-OP-G Mobility & Gait Start: 11/15/20 17:00 Freq: Status: Active Protocol: Document 11/15/20 16:00 DCW (Rec: 11/15/20 17:20 DCW [id number]) OP Mobility Evaluation Transfers Sit to Stand SBA, Pt required verbal cues to move footrests on w/c OP Gait Assessment Gait Gait Assistance Required: Minimum Assistance Distance (Feet) 10 Able to Maintain Weight Bearing Status Yes During Gait Assistive Devices Assistive Device None,Gait Belt,Large Based Quad Cane,Front Wheeled Walker ,Julio C Walker Gait Deviations General Gait Pattern Antalgic,Ataxic,Decreased Stride Length,Decreased Feet Clearance,Flexed Trunk,Step-to Gait Factors Limiting Gait Function Factors Limiting Gait Function Abnormal Tonal Influences, Decreased Activity Tolerance, Decreased Strength, Incoordination,Poor Balance, Poor Safety Awareness Comments Gait Comments Pt ambulated out into the hallway using no AD, then repeated using FWW, Hemiwalker , and LBQC. Pt showed most stability and comfort with hemiwalker, followed by LBQC. Pt showed decreased safety with FWW and no AD. Ambulates with left drop foot. PT-OP-H Neuro Start: 11/15/20 17:20 Freq: Status: Active Protocol: Document 11/15/20 16:00 DCW (Rec: 11/15/20 17:22 DCW [id number]) Sensation Evaluation Gross Sensation Gross Sensation WNL Comments Summary Comments Left visual extinction Coordination Evaluation Lower Extremity Tests Left Alternate Heel to Knee; Heel to Toe Test Moderate Impairment Heel on [place] Test Moderate Impairment Foot Tapping Test Severe Impairment PT-OP-M Strength Start: 11/15/20 17:00 Freq: Status: Active Protocol: Document 11/15/20 16:00 DCW (Rec: 11/15/20 17:20 DCW [id number]) Hip Strength Hip Manual Muscle Testing Right Flexion (L2) 5 Normal Extension (S1) 5 Normal Abduction 5 Normal Adduction 5 Normal External Rotation 5 Normal Internal Rotation 5 Normal Left Flexion (L2) 4 Good Extension (S1) 4- Good- Abduction 3 Fair Adduction 5 Normal External Rotation 4- Good- Internal Rotation 4- Good- Knee Strength Knee Manual Muscle Testing Right Flexion (S2) 5 Normal Extension (L3) 5 Normal Left Flexion (S2) 3+ Fair+ Extension (L3) 4- Good- Ankle/Foot Strength Ankle and Foot Manual Muscle Testing Right Dorsiflexion (L4) 5 Normal Plantarflexion (S1) 5 Normal Inversion 5 Normal Eversion (S1) 5 Normal Left Dorsiflexion (L4) 2 Poor Plantarflexion (S1) 2+ Poor+ Inversion 2 Poor Eversion (S1) 1 Trace PT-OP-T Assessment and Plan Start: 11/15/20 17:00 Freq: Status: Active Protocol: Document 11/15/20 16:00 DCW (Rec: 11/15/20 17:46 [facility] [id number]) Physical Therapy Assessment Rehab Potential Rehabilitation Potential Fair Evaluation Complexity Number of Personal Factors/Comorbidities 3 or More Number of Body Systems Impaired 4 or More Clinical Presentation at Evaluation Unstable Impairments Impairments Activity Tolerance,Balance, Coordination,Functional Activities,Functional Mobility ,Gait,Posture,Soft Tissue Mobility,Strength,Tone, Transfers,Visual Motor Goals Three Impairment Pt dispalys left visual extinction with bilateral stimulus presentation Analytical Chemistry Teacher Goal (LTG) Pt to complete RIVERA chart reading with a maximum of 5 mistakes in less than 3 minutes. LTG Duration 02/13/21 Two Impairment Significant left-sided weakness limits pt independence Analytical Chemistry Teacher Goal (LTG) Pt to increase L hip and knee MMT to at least 4/5 and ankle MMT to at least 3+/5 in all planes in order to increase independence with gait. LTG Duration 02/13/21 One Impairment Pt does not have an appropriate home exercse program Short Term Goal (STG) Pt to be independent and compliant with an appropriate HEP STG Duration 12/30/20 Assessment Summary Assessment Pt presents with multiple deficits 6 days s/p acute/ subacute ischemia of right frontal and parietal occipital lobes. Pt has left weakness, difficulty with balance, left foot drop, gait dysfunction, decreased coordination, and left visual extinction (a type of visual neglect where there is no perception of left stimulus when right stimulus is present). Pt also appears to have some decreased safety awareness, at the end of his appointment today attempted to get up from w/c without moving the footrests, because he forgot he was in a wheelchair and that he was supposed to ride it out to his car. Pt is very motivated to participate in therapy, and there may be some necessary management of unrealistic expectations. Pt did trial ambulation with multiple assistive devices, and pt demonstrated increased safety and comfort with a hemiwalker, which he and his reported they will work on getting. Pt should benefit from skilled therapy focusing on balance, gait, strength, and visual rehabilitation exercises. Physical Therapy Plan Frequency and Duration Frequency of Treatment 2x/Week Duration of Treatment 90 days Plan of Care Start Date 11/15/20 Plan of Care End Date 02/13/21 Therapeutic Interventions Therapeutic Interventions Balance Training,Coordination Training,Gait Training,Home Exercise Program,Manual Therapy,Neuromuscular Re- education,Patient/Caregiver Education,Self-Care/Home Management,Sensory Integration ,Soft Tissue Mobilization, Therapeutic Activities, Therapeutic Exercises, Wheelchair Management Other Referrals/Consults Referrals/Consults Recommended Pt would likely greatly benefit from a referral to Occupational Therapy. Next Visit Focus/Plan Next Note Type Treatment Note Next Visit Plan Complete Burgess and TUG, initiate strengthening, balance, and visual rehab exercises
--- NOTE | 2020-11-15 17:47 | PT.OPPOC ---
Physical, Occupational & Speech Therapy At [facility] Current Diagnoses Cerebral infarction, unspecified (11/15/20) Foot drop, left foot (11/15/20) Paralytic gait (11/15/20) Other abnormalities of gait and mobility (11/15/20) Weakness (11/15/20) Visit Care Team Role Provider Type Guevara Schneider DO Attending Provider Physician Primary Care Provider Referring Provider Specialty: [facility] Address: [address] [place] [address], [facility] Email: Plan Of Care PT-OP-T Assessment and Plan Start: 11/15/20 17:00 Freq: Status: Active Protocol: Document 11/15/20 16:00 DCW (Rec: 11/15/20 17:46 DCW [id number]) Physical Therapy Assessment Rehab Potential Rehabilitation Potential Fair Evaluation Complexity Number of Personal Factors/Comorbidities 3 or More Number of Body Systems Impaired 4 or More Clinical Presentation at Evaluation Unstable Impairments Impairments Activity Tolerance,Balance, Coordination,Functional Activities,Functional Mobility ,Gait,Posture,Soft Tissue Mobility,Strength,Tone, Transfers,Visual Motor Goals Three Impairment Pt dispalys left visual extinction with bilateral stimulus presentation Vice President Of Nursing Goal (LTG) Pt to complete RIVERA chart reading with a maximum of 5 mistakes in less than 3 minutes. LTG Duration 02/13/21 Two Impairment Significant left-sided weakness limits pt independence Detention Goal (LTG) Pt to increase L hip and knee MMT to at least 4/5 and ankle MMT to at least 3+/5 in all planes in order to increase independence with gait. LTG Duration 02/13/21 One Impairment Pt does not have an appropriate home exercse program Short Term Goal (STG) Pt to be independent and compliant with an appropriate HEP STG Duration 12/30/20 Assessment Summary Assessment Pt presents with multiple deficits 6 days s/p acute/ subacute ischemia of right frontal and parietal occipital lobes. Pt has left weakness, difficulty with balance, left foot drop, gait dysfunction, decreased coordination, and left visual extinction (a type of visual neglect where there is no perception of left stimulus when right stimulus is present). Pt also appears to have some decreased safety awareness, at the end of his appointment today attempted to get up from w/c without moving the footrests, because he forgot he was in a wheelchair and that he was supposed to ride it out to his car. Pt is very motivated to participate in therapy, and there may be some necessary management of unrealistic expectations. Pt did trial ambulation with multiple assistive devices, and pt demonstrated increased safety and comfort with a hemiwalker, which he and his reported they will work on getting. Pt should benefit from skilled therapy focusing on balance, gait, strength, and visual rehabilitation exercises. Physical Therapy Plan Frequency and Duration Frequency of Treatment 2x/Week Duration of Treatment 90 days Plan of Care Start Date 11/15/20 Plan of Care End Date 02/13/21 Therapeutic Interventions Therapeutic Interventions Balance Training,Coordination Training,Gait Training,Home Exercise Program,Manual Therapy,Neuromuscular Re- education,Patient/Caregiver Education,Self-Care/Home Management,Sensory Integration ,Soft Tissue Mobilization, Therapeutic Activities, Therapeutic Exercises, Wheelchair Management Other Referrals/Consults Referrals/Consults Recommended Pt would likely greatly benefit from a referral to Occupational Therapy. Next Visit Focus/Plan Next Note Type Treatment Note Next Visit Plan Complete Burgess and TUG, initiate strengthening, balance, and visual rehab exercises Plan of Care Dates Plan of Care Start Date 11/15/20 Plan of Care End Date 02/13/21 Electronically Signed by: Manjeet Cobos, PT 11/15/20 0101 Please Sign and Return: I have reviewed this Plan of Care and certify that the skilled therapy services above are required to meet the patient?s needs. Physician Signature Date Printed Name and Credentials Clinical Instructor Signature Printed Name and Credentials
--- NOTE | 2020-11-17 12:12 | PT.OTN ---
Current Diagnoses Cerebral infarction, unspecified (11/17/20) Foot drop, left foot (11/17/20) Paralytic gait (11/17/20) Other abnormalities of gait and mobility (11/17/20) Weakness (11/17/20) Physical Therapy Treatment Note PT-OP-A Visit Information Start: 11/15/20 17:00 Freq: Status: Active Protocol: Document 11/17/20 11:15 DCW (Rec: 11/17/20 12:10 DCW [id number]) Out-Patient Physical Therapy Visit Information Visit Information Visit Type Treatment Note Visit Start Time 11:15 Visit Stop Time 12:00 Total Visit Minutes 45 Visit Number 2 Number of WATCH ASSEMBLY INSPECTOR Visits 0 Evaluation Information Evaluation Date 11/15/20 PT-OP-B Current Condition Start: 11/15/20 17:00 Freq: Status: Active Protocol: Document 11/15/20 16:00 DCW (Rec: 11/15/20 17:20 DCW [id number]) Current Condition History of Current Condition Onset Date 11/09/20 Current Complaints CVA, weakness, imbalance History of Current Condition Pt is a 65 year old male six days s/p CVA. Pt came to [facility] ED on 11/09/20 with multiple falls, confusion , left-sided weakness, left facial droop, and sudden loss of taste. MRI showed restricted diffusion of R frontal, parietal, and occipital lobes, and pt was diagnosed with a CVA. Attending physician attempted to transfer pt to [facility] for treatment, however pt at that time refused and left the hospital AMA. Pt followed up with his PCP on 11/11/20, who referred him to for stroke rehab. Pt arrives to in a wheelchair. Notes he frequently walks without an assistive device at home, however uses his for stability. Pt reports his balance has been affected, and his left side is weak. Pt notes no sensory changes in his left side, but is unsure if he has noticed any visual changes. Prior Treatments and Tests Brain MRI: IMPRESSION: 1. Extensive restricted diffusion within the right frontal and parietal occipital lobes, consistent with acute/subacute ischemia. 2. Loss of signal within the distal right M1 segment on [id number] images most consistent with occlusion, although slow flow cannot be definitively excluded. CTA is recommended as indicated. 3. No areas of hemodynamically significant stenosis, vascular occlusion or aneurysmal dilation within the neck vasculature. Per: Rajani Mariano M.D. on 2020 Head/Neck CTA: IMPRESSION: 1. Acute/subacute right frontal and right parietal infarcts. 2 . No intracranial hemorrhage. 3. Partially occlusive thrombus in the distal M1 segment of the right middle cerebral artery with reduced flow in the M2 branches of the right middle cerebral artery distal to the thrombus. 4. Less than 50% stenosis of the origins of the internal carotid arteries. Area 5. Vertebral arteries are fully patent. Per: Abi Garcia MD, PhD on 11/09/2020 Treatment Goals Patient/Caregiver Goals Pt wants to get back to mobilizing independently. Prior Functional Status Baseline Function- ADL's Independent Baseline Function- Mobility Independent PT-OP-C Subjective Start: 11/15/20 17:20 Freq: Status: Active Protocol: Document 11/17/20 11:15 DCW (Rec: 11/17/20 12:10 DCW [id number]) OP-PT Subjective Patient Comments Patient Comments Pt appears to be slightly more emotional today with the realization of the extended recovery he is looking at, however very motivated to return as close as he can to his prior level of function. PT-OP-D Balance Start: 11/15/20 17:00 Freq: Status: Active Protocol: Document 11/17/20 11:15 DCW (Rec: 11/17/20 12:10 DCW [id number]) Balance Tests Burgess Balance Test Burgess Balance Test Score 43/56 Single Limb Standing Single Limb- Right 18 sec Single Limb- Left 2 sec Burgess Balance Assessment Evaluation Sitting to Standing Ability Independent w/out Hands Unsupported Stance Supervision- 2 minutes Sitting Unsupported, Feet on Floor Safely- 2 minutes Standing to Sitting Ability Assist, Control w/Hands Transfer Ability Safely, Minimal Hand Use Unsupported Stance- Eyes Closed Safely, 10 seconds Unsupported Stance- Eyes Open Independent, 1 minute Reaching Forward Standing Safely, 2 inches Pick- Up Object From Floor Independent/Safe Look Behind Shoulder - Standing Shifts Weight Unilateral Turning 360 Degrees Turns slowly, but safely Unsupported Stance, Alternating Feet on 4 Steps w/Supervision Stair Unsupported Tandem Stance Holds Tandem- 30 seconds Unilateral Leg Stance Lifts Leg/Unable to Hold Total Score Burgess Total Score (out of 56 points) 43 Burgess Impairment Rating 20 to 39% Impaired (Score 34- 44) PT-OP-E Functional Tests Start: 11/15/20 17:00 Freq: Status: Active Protocol: Document 11/17/20 11:15 DCW (Rec: 11/17/20 12:10 DCW [id number]) Functional Tests Timed Up and Go (TUG) Score 18.76 Comments 3-trial average (17.89, 19.08, 19.32) TUG Impairment Rating 80 to <100% Impaired (Score 18 -19) PT-OP-G Mobility & Gait Start: 11/15/20 17:00 Freq: Status: Active Protocol: Document 11/15/20 16:00 DCW (Rec: 11/15/20 17:20 DCW [id number]) OP Mobility Evaluation Transfers Sit to Stand SBA, Pt required verbal cues to move footrests on w/c OP Gait Assessment Gait Gait Assistance Required: Minimum Assistance Distance (Feet) 10 Able to Maintain Weight Bearing Status Yes During Gait Assistive Devices Assistive Device None,Gait Belt,Large Based Quad Cane,Front Wheeled Walker ,Julio C Walker Gait Deviations General Gait Pattern Antalgic,Ataxic,Decreased Stride Length,Decreased Feet Clearance,Flexed Trunk,Step-to Gait Factors Limiting Gait Function Factors Limiting Gait Function Abnormal Tonal Influences, Decreased Activity Tolerance, Decreased Strength, Incoordination,Poor Balance, Poor Safety Awareness Comments Gait Comments Pt ambulated out into the hallway using no AD, then repeated using FWW, Hemiwalker , and LBQC. Pt showed most stability and comfort with hemiwalker, followed by LBQC. Pt showed decreased safety with FWW and no AD. Ambulates with left drop foot. PT-OP-H Neuro Start: 11/15/20 17:20 Freq: Status: Active Protocol: Document 11/15/20 16:00 DCW (Rec: 11/15/20 17:22 DCW [id number]) Sensation Evaluation Gross Sensation Gross Sensation WNL Comments Summary Comments Left visual extinction Coordination Evaluation Lower Extremity Tests Left Alternate Heel to Knee; Heel to Toe Test Moderate Impairment Heel on Caldwell Test Moderate Impairment Foot Tapping Test Severe Impairment PT-OP-M Strength Start: 11/15/20 17:00 Freq: Status: Active Protocol: Document 11/15/20 16:00 DCW (Rec: 11/15/20 17:20 DCW [id number]) Hip Strength Hip Manual Muscle Testing Right Flexion (L2) 5 Normal Extension (S1) 5 Normal Abduction 5 Normal Adduction 5 Normal External Rotation 5 Normal Internal Rotation 5 Normal Left Flexion (L2) 4 Good Extension (S1) 4- Good- Abduction 3 Fair Adduction 5 Normal External Rotation 4- Good- Internal Rotation 4- Good- Knee Strength Knee Manual Muscle Testing Right Flexion (S2) 5 Normal Extension (L3) 5 Normal Left Flexion (S2) 3+ Fair+ Extension (L3) 4- Good- Ankle/Foot Strength Ankle and Foot Manual Muscle Testing Right Dorsiflexion (L4) 5 Normal Plantarflexion (S1) 5 Normal Inversion 5 Normal Eversion (S1) 5 Normal Left Dorsiflexion (L4) 2 Poor Plantarflexion (S1) 2+ Poor+ Inversion 2 Poor Eversion (S1) 1 Trace PT-OP-Q Treatments Start: 11/15/20 17:00 Freq: Status: Active Protocol: Document 11/17/20 11:15 DCW (Rec: 11/17/20 12:10 DCW [id number]) Gym Equipment Shuttle Recovery Unilateral Squats Resistance 25# Shuttle Recovery Platform Stable Bilateral Squats Resistance 75# Shuttle Recovery Platform Stable PT-OP-T Assessment and Plan Start: 11/15/20 17:00 Freq: Status: Active Protocol: Document 11/17/20 11:15 DCW (Rec: 11/17/20 12:10 DCW [id number]) Physical Therapy Assessment Impairments Impairments Activity Tolerance,Balance, Coordination,Functional Activities,Functional Mobility ,Gait,Posture,Soft Tissue Mobility,Strength,Tone, Transfers,Visual Motor Goals Three Impairment Pt dispalys left visual extinction with bilateral stimulus presentation Operations Planner Goal (LTG) Pt to complete RIVERA chart reading with a maximum of 5 mistakes in less than 3 minutes. LTG Duration 02/13/21 Two Impairment Significant left-sided weakness limits pt independence Operations Planner Goal (LTG) Pt to increase L hip and knee MMT to at least 4/5 and ankle MMT to at least 3+/5 in all planes in order to increase independence with gait. LTG Duration 02/13/21 One Impairment Pt does not have an appropriate home exercse program Short Term Goal (STG) Pt to be independent and compliant with an appropriate HEP STG Duration 12/30/20 Assessment Summary Assessment Scored fairly well on Burgess today, 43/56, indicating assistive device would be appropriate to decrease falls risk. Pt had an 18+ second TUG , which may indicate increased dysfunction. Pt has clear fatigue with left LE, resulting in decreased activity tolerance. Continue plan to work on gait training, strengthening, and balance. Physical Therapy Plan Frequency and Duration Frequency of Treatment 2x/Week Duration of Treatment 90 days Plan of Care Start Date 11/15/20 Plan of Care End Date 02/13/21 Therapeutic Interventions Therapeutic Interventions Balance Training,Coordination Training,Gait Training,Home Exercise Program,Manual Therapy,Neuromuscular Re- education,Patient/Caregiver Education,Self-Care/Home Management,Sensory Integration ,Soft Tissue Mobilization, Therapeutic Activities, Therapeutic Exercises, Wheelchair Management Next Visit Focus/Plan Next Note Type Treatment Note Next Visit Plan Strengthening, balance, and visual rehab exercises
--- NOTE | 2020-11-29 08:23 | PT.OTN ---
Current Diagnoses Cerebral infarction, unspecified (11/29/20) Foot drop, left foot (11/29/20) Paralytic gait (11/29/20) Other abnormalities of gait and mobility (11/29/20) Weakness (11/29/20) Physical Therapy Treatment Note PT-OP-A Visit Information Start: 11/15/20 17:00 Freq: Status: Active Protocol: Document 11/29/20 07:35 SP (Rec: 11/29/20 09:25 SP [id number]) Out-Patient Physical Therapy Visit Information Visit Information Visit Type Treatment Note Visit Note Pt 5 min late for appt, use in bathroom. didnt' stay for tx, did errrands in town looking for HW. Visit Start Time 07:35 Visit Stop Time 08:23 Total Visit Minutes 48 Visit Number 3 Number of CONSTRUCTION CRAFT LABORER Visits 1 Evaluation Information Evaluation Date 11/15/20 PT-OP-B Current Condition Start: 11/15/20 17:00 Freq: Status: Active Protocol: Document 11/15/20 16:00 DCW (Rec: 11/15/20 17:20 DCW [id number]) Current Condition History of Current Condition Onset Date 11/09/20 Current Complaints CVA, weakness, imbalance History of Current Condition Pt is a 65 year old male six days s/p CVA. Pt came to [facility] ED on 11/09/20 with multiple falls, confusion , left-sided weakness, left facial droop, and sudden loss of taste. MRI showed restricted diffusion of R frontal, parietal, and occipital lobes, and pt was diagnosed with a CVA. Attending physician attempted to transfer pt to [facility] for treatment, however pt at that time refused and left the hospital AMA. Pt followed up with his PCP on 11/11/20, who referred him to PT for stroke rehab. Pt arrives to PT in a wheelchair. Notes he frequently walks without an assistive device at home, however uses his for stability. Pt reports his balance has been affected, and his left side is weak. Pt notes no sensory changes in his left side, but is unsure if he has noticed any visual changes. Prior Treatments and Tests Brain MRI: IMPRESSION: 1. Extensive restricted diffusion within the right frontal and parietal occipital lobes, consistent with acute/subacute ischemia. 2. Loss of signal within the distal right M1 segment on [id number] images most consistent with occlusion, although slow flow cannot be definitively excluded. CTA is recommended as indicated. 3. No areas of hemodynamically significant stenosis, vascular occlusion or aneurysmal dilation within the neck vasculature. Per: Rajani Mariano M.D. on 2020 Head/Neck CTA: IMPRESSION: 1. Acute/subacute right frontal and right parietal infarcts. 2 . No intracranial hemorrhage. 3. Partially occlusive thrombus in the distal M1 segment of the right middle cerebral artery with reduced flow in the M2 branches of the right middle cerebral artery distal to the thrombus. 4. Less than 50% stenosis of the origins of the internal carotid arteries. Area 5. Vertebral arteries are fully patent. Per: Abi Garcia MD, PhD on 11/09/2020 Treatment Goals Patient/Caregiver Goals Pt wants to get back to mobilizing independently. Prior Functional Status Baseline Function- ADL's Independent Baseline Function- Mobility Independent PT-OP-C Subjective Start: 11/15/20 17:20 Freq: Status: Active Protocol: Document 11/29/20 07:35 SP (Rec: 11/29/20 09:25 SP [id number]) OP-PT Subjective Patient Comments Patient Comments Pt arived with , no AD so Pt's got IH w/c for him to use for gait and sit in w/c to rest when arrived for tx. Pt stated was tired after last tx. Did order a HW throught insurance but wanted it sooner so ordered on [employer] and still hasn't arrived, its delayed in [place]. PT-OP-D Balance Start: 11/15/20 17:00 Freq: Status: Active Protocol: Document 11/17/20 11:15 DCW (Rec: 11/17/20 12:10 DCW [id number]) Balance Tests Burgess Balance Test Burgess Balance Test Score 43/56 Single Limb Standing Single Limb- Right 18 sec Single Limb- Left 2 sec Burgess Balance Assessment Evaluation Sitting to Standing Ability Independent w/out Hands Unsupported Stance Supervision- 2 minutes Sitting Unsupported, Feet on Floor Safely- 2 minutes Standing to Sitting Ability Assist, Control w/Hands Transfer Ability Safely, Minimal Hand Use Unsupported Stance- Eyes Closed Safely, 10 seconds Unsupported Stance- Eyes Open Independent, 1 minute Reaching Forward Standing Safely, 2 inches Pick- Up Object From Floor Independent/Safe Look Behind Shoulder - Standing Shifts Weight Unilateral Turning 360 Degrees Turns slowly, but safely Unsupported Stance, Alternating Feet on 4 Steps w/Supervision Stair Unsupported Tandem Stance Holds Tandem- 30 seconds Unilateral Leg Stance Lifts Leg/Unable to Hold Total Score Burgess Total Score (out of 56 points) 43 Burgess Impairment Rating 20 to 39% Impaired (Score 34- 44) PT-OP-E Functional Tests Start: 11/15/20 17:00 Freq: Status: Active Protocol: Document 11/17/20 11:15 DCW (Rec: 11/17/20 12:10 DCW [id number]) Functional Tests Timed Up and Go (TUG) Score 18.76 Comments 3-trial average (17.89, 19.08, 19.32) TUG Impairment Rating 80 to <100% Impaired (Score 18 -19) PT-OP-G Mobility & Gait Start: 11/15/20 17:00 Freq: Status: Active Protocol: Document 11/15/20 16:00 DCW (Rec: 11/15/20 17:20 DCW [id number]) OP Mobility Evaluation Transfers Sit to Stand SBA, Pt required verbal cues to move footrests on w/c OP Gait Assessment Gait Gait Assistance Required: Minimum Assistance Distance (Feet) 10 Able to Maintain Weight Bearing Status Yes During Gait Assistive Devices Assistive Device None,Gait Belt,Large Based Quad Cane,Front Wheeled Walker ,Julio C Walker Gait Deviations General Gait Pattern Antalgic,Ataxic,Decreased Stride Length,Decreased Feet Clearance,Flexed Trunk,Step-to Gait Factors Limiting Gait Function Factors Limiting Gait Function Abnormal Tonal Influences, Decreased Activity Tolerance, Decreased Strength, Incoordination,Poor Balance, Poor Safety Awareness Comments Gait Comments Pt ambulated out into the hallway using no AD, then repeated using FWW, Hemiwalker , and LBQC. Pt showed most stability and comfort with hemiwalker, followed by LBQC. Pt showed decreased safety with FWW and no AD. Ambulates with left drop foot. PT-OP-H Neuro Start: 11/15/20 17:20 Freq: Status: Active Protocol: Document 11/15/20 16:00 DCW (Rec: 11/15/20 17:22 DCW [id number]) Sensation Evaluation Gross Sensation Gross Sensation WNL Comments Summary Comments Left visual extinction Coordination Evaluation Lower Extremity Tests Left Alternate Heel to Knee; Heel to Toe Test Moderate Impairment Heel on [place]dwell Test Moderate Impairment Foot Tapping Test Severe Impairment PT-OP-M Strength Start: 11/15/20 17:00 Freq: Status: Active Protocol: Document 11/15/20 16:00 DCW (Rec: 11/15/20 17:20 DCW [id number]) Hip Strength Hip Manual Muscle Testing Right Flexion (L2) 5 Normal Extension (S1) 5 Normal Abduction 5 Normal Adduction 5 Normal External Rotation 5 Normal Internal Rotation 5 Normal Left Flexion (L2) 4 Good Extension (S1) 4- Good- Abduction 3 Fair Adduction 5 Normal External Rotation 4- Good- Internal Rotation 4- Good- Knee Strength Knee Manual Muscle Testing Right Flexion (S2) 5 Normal Extension (L3) 5 Normal Left Flexion (S2) 3+ Fair+ Extension (L3) 4- Good- Ankle/Foot Strength Ankle and Foot Manual Muscle Testing Right Dorsiflexion (L4) 5 Normal Plantarflexion (S1) 5 Normal Inversion 5 Normal Eversion (S1) 5 Normal Left Dorsiflexion (L4) 2 Poor Plantarflexion (S1) 2+ Poor+ Inversion 2 Poor Eversion (S1) 1 Trace PT-OP-Q Treatments Start: 11/15/20 17:00 Freq: Status: Active Protocol: Document 11/29/20 07:35 SP (Rec: 11/29/20 09:25 SP [id number]) Gym Equipment Shuttle Recovery Unilateral Squats Resistance 25# Shuttle Recovery Platform Stable Reps/Time 2x10 Bilateral Squats Resistance 75# Shuttle Recovery Platform Stable Reps/Time 2x10 Therapeutic Exercises Sitting Exercises Personal HEP Sitting Exercise Name HS curls and unilateral seated UE rows w/ TB Comments discussion not performed- review/ assess next tx sit<> stands Sitting Exercise Name arms in front (added to HEP0 Reps/Minutes 6.5 reps in 30 sec Comments cued full extension stand Standing Exercises calf raises Standing Exercise Name added to HEP Equipment Used rail contact Reps/Minutes x10 Comments stable good form hip ext Standing Exercise Name added to HEP Side bilateral Reps/Minutes x5 (HEP x10) Comments tall good posture, L foot cleareance hip abd Standing Exercise Name added to HEP Side bilateral Equipment Used rail Reps/Minutes x5 (HEP x10) Comments cued tall posture, L foot clearance Gait Training Gait Activity 6MWT Device Used HW Level of Assistance CG Surface firm Distance/Duration 341ft in 6 m in Treatment Focus Stride and foot clearance and proper sequencing HW Comments Min cues, for L foot clearance , stride, all 4 points of HW in contact when place down, 2 pt gait. Pt requries increase cues for obstacles mgt on R, HW positioning , improved on straight distances. PT-OP-T Assessment and Plan Start: 11/15/20 17:00 Freq: Status: Active Protocol: Document 11/29/20 07:35 SP (Rec: 11/29/20 09:25 SP [id number]) Physical Therapy Assessment Goals Three Impairment Pt dispalys left visual extinction with bilateral stimulus presentation Snf Goal (LTG) Pt to complete RIVERA chart reading with a maximum of 5 mistakes in less than 3 minutes. LTG Duration 02/13/21 Two Impairment Significant left-sided weakness limits pt independence Civil Structural Designer Goal (LTG) Pt to increase L hip and knee MMT to at least 4/5 and ankle MMT to at least 3+/5 in all planes in order to increase independence with gait. LTG Duration 02/13/21 One Impairment Pt does not have an appropriate home exercse program Short Term Goal (STG) Pt to be independent and compliant with an appropriate HEP STG Duration 12/30/20 Assessment Summary Assessment CONSTRUCTION CRAFT LABORER suggested calling [employer] to see if can borrow HW, hours T, F. Pt responded well to ther ex, feels good to have more things to do in standing. Pt requires cuing for L foot clearance and safety HW placement during gait, continue next tx. Physical Therapy Plan Frequency and Duration Frequency of Treatment 2x/Week Duration of Treatment 90 days Plan of Care Start Date 11/15/20 Plan of Care End Date 02/13/21 Therapeutic Interventions Therapeutic Interventions Balance Training,Coordination Training,Gait Training,Home Exercise Program,Manual Therapy,Neuromuscular Re- education,Patient/Caregiver Education,Self-Care/Home Management,Sensory Integration ,Soft Tissue Mobilization, Therapeutic Activities, Therapeutic Exercises, Wheelchair Management Other Referrals/Consults Referrals/Consults Recommended Pt would likely greatly benefit from a referral to Occupational Therapy. Next Visit Focus/Plan Next Note Type Treatment Note Next Visit Plan Recheck HEP: seated TB HS curls, rows, initiated sit<> stands, stand hip abd/ ext, heel raises and progress gait using HW for safety home. POC: Strengthening, balance, and visual rehab exercises
--- NOTE | 2020-12-13 12:45 | PT.OTN ---
Current Diagnoses Cerebral infarction, unspecified (12/13/20) Foot drop, left foot (12/13/20) Paralytic gait (12/13/20) Other abnormalities of gait and mobility (12/13/20) Weakness (12/13/20) Physical Therapy Treatment Note PT-OP-A Visit Information Start: 11/15/20 17:00 Freq: Status: Active Protocol: Document 12/13/20 12:00 DCW (Rec: 12/13/20 12:45 DCW [id number]) Out-Patient Physical Therapy Visit Information Visit Information Visit Type Treatment Note Visit Note Shortened session to limit units billed Visit Start Time 12:00 Visit Stop Time 12:35 Total Visit Minutes 35 Visit Number 4 Number of CABLE SPLICER ASSISTANT Visits 0 Evaluation Information Evaluation Date 11/15/20 PT-OP-B Current Condition Start: 11/15/20 17:00 Freq: Status: Active Protocol: Document 11/15/20 16:00 DCW (Rec: 11/15/20 17:20 DCW [id number]) Current Condition History of Current Condition Onset Date 11/09/20 Current Complaints CVA, weakness, imbalance History of Current Condition Pt is a 65 year old male six days s/p CVA. Pt came to [facility] ED on 11/09/20 with multiple falls, confusion , left-sided weakness, left facial droop, and sudden loss of taste. MRI showed restricted diffusion of R frontal, parietal, and occipital lobes, and pt was diagnosed with a CVA. Attending physician attempted to transfer pt to [facility] for treatment, however pt at that time refused and left the hospital AMA. Pt followed up with his PCP on 11/11/20, who referred him to PT for stroke rehab. Pt arrives to PT in a wheelchair. Notes he frequently walks without an assistive device at home, however uses his for stability. Pt reports his balance has been affected, and his left side is weak. Pt notes no sensory changes in his left side, but is unsure if he has noticed any visual changes. Prior Treatments and Tests Brain MRI: IMPRESSION: 1. Extensive restricted diffusion within the right frontal and parietal occipital lobes, consistent with acute/subacute ischemia. 2. Loss of signal within the distal right M1 segment on [id number] images most consistent with occlusion, although slow flow cannot be definitively excluded. CTA is recommended as indicated. 3. No areas of hemodynamically significant stenosis, vascular occlusion or aneurysmal dilation within the neck vasculature. Per: Rajani Mariano M.D. on 2020 Head/Neck CTA: IMPRESSION: 1. Acute/subacute right frontal and right parietal infarcts. 2 . No intracranial hemorrhage. 3. Partially occlusive thrombus in the distal M1 segment of the right middle cerebral artery with reduced flow in the M2 branches of the right middle cerebral artery distal to the thrombus. 4. Less than 50% stenosis of the origins of the internal carotid arteries. Area 5. Vertebral arteries are fully patent. Per: Abi Garcia MD, PhD on 11/09/2020 Treatment Goals Patient/Caregiver Goals Pt wants to get back to mobilizing independently. Prior Functional Status Baseline Function- ADL's Independent Baseline Function- Mobility Independent PT-OP-C Subjective Start: 11/15/20 17:20 Freq: Status: Active Protocol: Document 12/13/20 12:00 DCW (Rec: 12/13/20 12:45 DCW [id number]) OP-PT Subjective Patient Comments Patient Comments Pt arrives today using a single axillary crutch on R side. Notes he uses both this and a hemiwalker, but prefers the crutch because it doesn't get in the way as much. PT-OP-D Balance Start: 11/15/20 17:00 Freq: Status: Active Protocol: Document 11/17/20 11:15 DCW (Rec: 11/17/20 12:10 DCW [id number]) Balance Tests Burgess Balance Test Burgess Balance Test Score 43/56 Single Limb Standing Single Limb- Right 18 sec Single Limb- Left 2 sec Burgess Balance Assessment Evaluation Sitting to Standing Ability Independent w/out Hands Unsupported Stance Supervision- 2 minutes Sitting Unsupported, Feet on Floor Safely- 2 minutes Standing to Sitting Ability Assist, Control w/Hands Transfer Ability Safely, Minimal Hand Use Unsupported Stance- Eyes Closed Safely, 10 seconds Unsupported Stance- Eyes Open Independent, 1 minute Reaching Forward Standing Safely, 2 inches Pick- Up Object From Floor Independent/Safe Look Behind Shoulder - Standing Shifts Weight Unilateral Turning 360 Degrees Turns slowly, but safely Unsupported Stance, Alternating Feet on 4 Steps w/Supervision Stair Unsupported Tandem Stance Holds Tandem- 30 seconds Unilateral Leg Stance Lifts Leg/Unable to Hold Total Score Burgess Total Score (out of 56 points) 43 Burgess Impairment Rating 20 to 39% Impaired (Score 34- 44) PT-OP-E Functional Tests Start: 11/15/20 17:00 Freq: Status: Active Protocol: Document 11/17/20 11:15 DCW (Rec: 11/17/20 12:10 DCW [id number]) Functional Tests Timed Up and Go (TUG) Score 18.76 Comments 3-trial average (17.89, 19.08, 19.32) TUG Impairment Rating 80 to <100% Impaired (Score 18 -19) PT-OP-G Mobility & Gait Start: 11/15/20 17:00 Freq: Status: Active Protocol: Document 11/15/20 16:00 DCW (Rec: 11/15/20 17:20 DCW [id number]) OP Mobility Evaluation Transfers Sit to Stand SBA, Pt required verbal cues to move footrests on w/c OP Gait Assessment Gait Gait Assistance Required: Minimum Assistance Distance (Feet) 10 Able to Maintain Weight Bearing Status Yes During Gait Assistive Devices Assistive Device None,Gait Belt,Large Based Quad Cane,Front Wheeled Walker ,Julio C Walker Gait Deviations General Gait Pattern Antalgic,Ataxic,Decreased Stride Length,Decreased Feet Clearance,Flexed Trunk,Step-to Gait Factors Limiting Gait Function Factors Limiting Gait Function Abnormal Tonal Influences, Decreased Activity Tolerance, Decreased Strength, Incoordination,Poor Balance, Poor Safety Awareness Comments Gait Comments Pt ambulated out into the hallway using no AD, then repeated using FWW, Hemiwalker , and LBQC. Pt showed most stability and comfort with hemiwalker, followed by LBQC. Pt showed decreased safety with FWW and no AD. Ambulates with left drop foot. PT-OP-H Neuro Start: 11/15/20 17:20 Freq: Status: Active Protocol: Document 11/15/20 16:00 DCW (Rec: 11/15/20 17:22 DCW [id number]) Sensation Evaluation Gross Sensation Gross Sensation WNL Comments Summary Comments Left visual extinction Coordination Evaluation Lower Extremity Tests Left Alternate Heel to Knee; Heel to Toe Test Moderate Impairment Heel on [place] Test Moderate Impairment Foot Tapping Test Severe Impairment PT-OP-M Strength Start: 11/15/20 17:00 Freq: Status: Active Protocol: Document 11/15/20 16:00 DCW (Rec: 11/15/20 17:20 DCW [id number]) Hip Strength Hip Manual Muscle Testing Right Flexion (L2) 5 Normal Extension (S1) 5 Normal Abduction 5 Normal Adduction 5 Normal External Rotation 5 Normal Internal Rotation 5 Normal Left Flexion (L2) 4 Good Extension (S1) 4- Good- Abduction 3 Fair Adduction 5 Normal External Rotation 4- Good- Internal Rotation 4- Good- Knee Strength Knee Manual Muscle Testing Right Flexion (S2) 5 Normal Extension (L3) 5 Normal Left Flexion (S2) 3+ Fair+ Extension (L3) 4- Good- Ankle/Foot Strength Ankle and Foot Manual Muscle Testing Right Dorsiflexion (L4) 5 Normal Plantarflexion (S1) 5 Normal Inversion 5 Normal Eversion (S1) 5 Normal Left Dorsiflexion (L4) 2 Poor Plantarflexion (S1) 2+ Poor+ Inversion 2 Poor Eversion (S1) 1 Trace PT-OP-Q Treatments Start: 11/15/20 17:00 Freq: Status: Active Protocol: Document 12/13/20 12:00 DCW (Rec: 12/13/20 12:45 DCW [id number]) Cardio Equipment Recumbent Elliptical ([employer]) Duration (Minutes) 4 Resistance 1 Seat Position 8 Gym Equipment Shuttle Recovery Unilateral Squats Resistance 37# Shuttle Recovery Platform Stable Reps/Time 2x10 Bilateral Squats Resistance 75# Shuttle Recovery Platform Stable Reps/Time 2x10 Shuttle Balance Red Details WBOS Comments B UE then L UE support Therapeutic Exercises Sitting Exercises Hip Abduction Sitting Exercise Name Abduction Side bilateral Resistance Lv 2 Equipment Used T-band Ankle flexion Sitting Exercise Name DF, Inv, Ev Side left Resistance Lv 2 Equipment Used T-band sit<> stands Sitting Exercise Name arms in front Reps/Minutes 6.5 reps in 30 sec Comments cued full extension stand PT-OP-T Assessment and Plan Start: 11/15/20 17:00 Freq: Status: Active Protocol: Document 12/13/20 12:00 DCW (Rec: 12/13/20 12:45 DCW [id number]) Physical Therapy Assessment Impairments Impairments Activity Tolerance,Balance, Coordination,Functional Activities,Functional Mobility ,Gait,Posture,Soft Tissue Mobility,Strength,Tone, Transfers,Visual Motor Goals Three Impairment Pt dispalys left visual extinction with bilateral stimulus presentation [facility] Goal (LTG) Pt to complete RIVERA chart reading with a maximum of 5 mistakes in less than 3 minutes. LTG Duration 02/13/21 Two Impairment Significant left-sided weakness limits pt independence [place] Goal (LTG) Pt to increase L hip and knee MMT to at least 4/5 and ankle MMT to at least 3+/5 in all planes in order to increase independence with gait. LTG Duration 02/13/21 One Impairment Pt does not have an appropriate home exercse program Short Term Goal (STG) Pt to be independent and compliant with an appropriate HEP STG Duration 12/30/20 Assessment Summary Assessment Pt doing well with new AD, showing improvement with sit<- >stand and ankle mobility. Pt struggled with first try on Shuttle Balance, but had a good workout with it. Physical Therapy Plan Frequency and Duration Frequency of Treatment 2x/Week Duration of Treatment 90 days Plan of Care Start Date 11/15/20 Plan of Care End Date 02/13/21 Therapeutic Interventions Therapeutic Interventions Balance Training,Coordination Training,Gait Training,Home Exercise Program,Manual Therapy,Neuromuscular Re- education,Patient/Caregiver Education,Self-Care/Home Management,Sensory Integration ,Soft Tissue Mobilization, Therapeutic Activities, Therapeutic Exercises, Wheelchair Management Other Referrals/Consults Referrals/Consults Recommended Pt would likely greatly benefit from a referral to Occupational Therapy. Next Visit Focus/Plan Next Note Type Treatment Note Next Visit Plan Recheck HEP: seated TB HS curls, rows, initiated sit<> stands, stand hip abd/ ext, heel raises and progress gait using HW for safety home. POC: Strengthening, balance, and visual rehab exercises
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
--- NOTE | 2020-12-20 11:14 | PT.OTN ---
Current Diagnoses Cerebral infarction, unspecified (12/20/20) Foot drop, left foot (12/20/20) Paralytic gait (12/20/20) Other abnormalities of gait and mobility (12/20/20) Weakness (12/20/20) Physical Therapy Treatment Note PT-OP-A Visit Information Start: 11/15/20 17:00 Freq: Status: Active Protocol: Document 12/20/20 10:30 DCW (Rec: 12/20/20 11:14 DCW [id number]) Out-Patient Physical Therapy Visit Information Visit Information Visit Type Treatment Note Visit Note Shortened session to limit units billed Visit Start Time 10:30 Visit Stop Time 11:05 Total Visit Minutes 35 Visit Number 6 Number of JAVA WEB USER INTERFACE DEVELOPER Visits 0 Evaluation Information Evaluation Date 11/15/20 PT-OP-B Current Condition Start: 11/15/20 17:00 Freq: Status: Active Protocol: Document 11/15/20 16:00 DCW (Rec: 11/15/20 17:20 DCW [id number]) Current Condition History of Current Condition Onset Date 11/09/20 Current Complaints CVA, weakness, imbalance History of Current Condition Pt is a 65 year old male six days s/p CVA. Pt came to [facility] ED on 11/09/20 with multiple falls, confusion , left-sided weakness, left facial droop, and sudden loss of taste. MRI showed restricted diffusion of R frontal, parietal, and occipital lobes, and pt was diagnosed with a CVA. Attending physician attempted to transfer pt to [facility] for treatment, however pt at that time refused and left the hospital AMA. Pt followed up with his PCP on 11/11/20, who referred him to PT for stroke rehab. Pt arrives to PT in a wheelchair. Notes he frequently walks without an assistive device at home, however uses his for stability. Pt reports his balance has been affected, and his left side is weak. Pt notes no sensory changes in his left side, but is unsure if he has noticed any visual changes. Prior Treatments and Tests Brain MRI: IMPRESSION: 1. Extensive restricted diffusion within the right frontal and parietal occipital lobes, consistent with acute/subacute ischemia. 2. Loss of signal within the distal right M1 segment on [id number] images most consistent with occlusion, although slow flow cannot be definitively excluded. CTA is recommended as indicated. 3. No areas of hemodynamically significant stenosis, vascular occlusion or aneurysmal dilation within the neck vasculature. Per: Rajani Mariano M.D. on 2020 Head/Neck CTA: IMPRESSION: 1. Acute/subacute right frontal and right parietal infarcts. 2 . No intracranial hemorrhage. 3. Partially occlusive thrombus in the distal M1 segment of the right middle cerebral artery with reduced flow in the M2 branches of the right middle cerebral artery distal to the thrombus. 4. Less than 50% stenosis of the origins of the internal carotid arteries. Area 5. Vertebral arteries are fully patent. Per: Aib Garcia MD, PhD on 11/09/2020 Treatment Goals Patient/Caregiver Goals Pt wants to get back to mobilizing independently. Prior Functional Status Baseline Function- ADL's Independent Baseline Function- Mobility Independent PT-OP-C Subjective Start: 11/15/20 17:20 Freq: Status: Active Protocol: Document 12/20/20 10:30 DCW (Rec: 12/20/20 11:14 DCW [id number]) OP-PT Subjective Patient Comments Patient Comments I'm not picking this thing ( left foot) up too well today. PT-OP-D Balance Start: 11/15/20 17:00 Freq: Status: Active Protocol: Document 11/17/20 11:15 DCW (Rec: 11/17/20 12:10 DCW [id number]) Balance Tests Burgess Balance Test Burgess Balance Test Score 43/56 Single Limb Standing Single Limb- Right 18 sec Single Limb- Left 2 sec Burgess Balance Assessment Evaluation Sitting to Standing Ability Independent w/out Hands Unsupported Stance Supervision- 2 minutes Sitting Unsupported, Feet on Floor Safely- 2 minutes Standing to Sitting Ability Assist, Control w/Hands Transfer Ability Safely, Minimal Hand Use Unsupported Stance- Eyes Closed Safely, 10 seconds Unsupported Stance- Eyes Open Independent, 1 minute Reaching Forward Standing Safely, 2 inches Pick- Up Object From Floor Independent/Safe Look Behind Shoulder - Standing Shifts Weight Unilateral Turning 360 Degrees Turns slowly, but safely Unsupported Stance, Alternating Feet on 4 Steps w/Supervision Stair Unsupported Tandem Stance Holds Tandem- 30 seconds Unilateral Leg Stance Lifts Leg/Unable to Hold Total Score Burgess Total Score (out of 56 points) 43 Burgess Impairment Rating 20 to 39% Impaired (Score 34- 44) PT-OP-E Functional Tests Start: 11/15/20 17:00 Freq: Status: Active Protocol: Document 11/17/20 11:15 DCW (Rec: 11/17/20 12:10 DCW [id number]) Functional Tests Timed Up and Go (TUG) Score 18.76 Comments 3-trial average (17.89, 19.08, 19.32) TUG Impairment Rating 80 to <100% Impaired (Score 18 -19) PT-OP-G Mobility & Gait Start: 11/15/20 17:00 Freq: Status: Active Protocol: Document 11/15/20 16:00 DCW (Rec: 11/15/20 17:20 DCW [id number]) OP Mobility Evaluation Transfers Sit to Stand SBA, Pt required verbal cues to move footrests on w/c OP Gait Assessment Gait Gait Assistance Required: Minimum Assistance Distance (Feet) 10 Able to Maintain Weight Bearing Status Yes During Gait Assistive Devices Assistive Device None,Gait Belt,Large Based Quad Cane,Front Wheeled Walker ,Julio C Walker Gait Deviations General Gait Pattern Antalgic,Ataxic,Decreased Stride Length,Decreased Feet Clearance,Flexed Trunk,Step-to Gait Factors Limiting Gait Function Factors Limiting Gait Function Abnormal Tonal Influences, Decreased Activity Tolerance, Decreased Strength, Incoordination,Poor Balance, Poor Safety Awareness Comments Gait Comments Pt ambulated out into the hallway using no AD, then repeated using FWW, Hemiwalker , and LBQC. Pt showed most stability and comfort with hemiwalker, followed by LBQC. Pt showed decreased safety with FWW and no AD. Ambulates with left drop foot. PT-OP-H Neuro Start: 11/15/20 17:20 Freq: Status: Active Protocol: Document 11/15/20 16:00 DCW (Rec: 11/15/20 17:22 DCW [id number]) Sensation Evaluation Gross Sensation Gross Sensation WNL Comments Summary Comments Left visual extinction Coordination Evaluation Lower Extremity Tests Left Alternate Heel to Knee; Heel to Toe Test Moderate Impairment Heel on Caldwell Test Moderate Impairment Foot Tapping Test Severe Impairment PT-OP-M Strength Start: 11/15/20 17:00 Freq: Status: Active Protocol: Document 11/15/20 16:00 DCW (Rec: 11/15/20 17:20 DCW [id number]) Hip Strength Hip Manual Muscle Testing Right Flexion (L2) 5 Normal Extension (S1) 5 Normal Abduction 5 Normal Adduction 5 Normal External Rotation 5 Normal Internal Rotation 5 Normal Left Flexion (L2) 4 Good Extension (S1) 4- Good- Abduction 3 Fair Adduction 5 Normal External Rotation 4- Good- Internal Rotation 4- Good- Knee Strength Knee Manual Muscle Testing Right Flexion (S2) 5 Normal Extension (L3) 5 Normal Left Flexion (S2) 3+ Fair+ Extension (L3) 4- Good- Ankle/Foot Strength Ankle and Foot Manual Muscle Testing Right Dorsiflexion (L4) 5 Normal Plantarflexion (S1) 5 Normal Inversion 5 Normal Eversion (S1) 5 Normal Left Dorsiflexion (L4) 2 Poor Plantarflexion (S1) 2+ Poor+ Inversion 2 Poor Eversion (S1) 1 Trace PT-OP-Q Treatments Start: 11/15/20 17:00 Freq: Status: Active Protocol: Document 12/20/20 10:30 DCW (Rec: 12/20/20 11:14 DCW [id number]) Cardio Equipment Recumbent Elliptical (BiodFinale Desserts) Duration (Minutes) 4 Resistance 4 Seat Position 9 Gym Equipment Shuttle Recovery Unilateral Squats Details Left Resistance 37# Shuttle Recovery Platform Stable Reps/Time x20 Bilateral Squats Resistance 100# Shuttle Recovery Platform Stable Reps/Time x20 Shuttle Balance Red Details WBOS Comments B UE then L UE support Therapeutic Exercises Sitting Exercises Ankle flexion Sitting Exercise Name DF, Inv, Ev Side left Resistance Lv 2 Equipment Used T-band Other Exercises hurdles Other Exercise Name fwd, lateral Equipment Used // bars PT-OP-T Assessment and Plan Start: 11/15/20 17:00 Freq: Status: Active Protocol: Document 12/20/20 10:30 DCW (Rec: 12/20/20 11:14 DCW [id number]) Physical Therapy Assessment Impairments Impairments Activity Tolerance,Balance, Coordination,Functional Activities,Functional Mobility ,Gait,Posture,Soft Tissue Mobility,Strength,Tone, Transfers,Visual Motor Goals Three Impairment Pt dispalys left visual extinction with bilateral stimulus presentation Retirement Goal (LTG) Pt to complete RIVERA chart reading with a maximum of 5 mistakes in less than 3 minutes. LTG Duration 02/13/21 Two Impairment Significant left-sided weakness limits pt independence Food Clerk Goal (LTG) Pt to increase L hip and knee MMT to at least 4/5 and ankle MMT to at least 3+/5 in all planes in order to increase independence with gait. LTG Duration 02/13/21 One Impairment Pt does not have an appropriate home exercse program Short Term Goal (STG) Pt to be independent and compliant with an appropriate HEP STG Duration 12/30/20 Assessment Summary Assessment Pt performed very well today, did much better on the shuttle balance, and did well with addition of juan exercises. Physical Therapy Plan Frequency and Duration Frequency of Treatment 2x/Week Duration of Treatment 90 days Plan of Care Start Date 11/15/20 Plan of Care End Date 02/13/21 Therapeutic Interventions Therapeutic Interventions Balance Training,Coordination Training,Gait Training,Home Exercise Program,Manual Therapy,Neuromuscular Re- education,Patient/Caregiver Education,Self-Care/Home Management,Sensory Integration ,Soft Tissue Mobilization, Therapeutic Activities, Therapeutic Exercises, Wheelchair Management Other Referrals/Consults Referrals/Consults Recommended Pt would likely greatly benefit from a referral to Occupational Therapy. Next Visit Focus/Plan Next Note Type Treatment Note Next Visit Plan Recheck HEP: seated TB HS curls, rows, initiated sit<> stands, stand hip abd/ ext, heel raises and progress gait using HW for safety home. POC: Strengthening, balance, and visual rehab exercises
--- NOTE | 2020-12-23 11:10 | PT.OTN ---
Current Diagnoses Cerebral infarction, unspecified (12/23/20) Foot drop, left foot (12/23/20) Paralytic gait (12/23/20) Other abnormalities of gait and mobility (12/23/20) Weakness (12/23/20) Physical Therapy Treatment Note PT-OP-A Visit Information Start: 11/15/20 17:00 Freq: Status: Active Protocol: Document 12/23/20 10:33 DCW (Rec: 12/23/20 11:10 DCW [id number]) Out-Patient Physical Therapy Visit Information Visit Information Visit Type Treatment Note Visit Note Shortened session to limit units billed Visit Start Time 10:33 Visit Stop Time 11:05 Total Visit Minutes 32 Visit Number 7 Number of CORE MACHINE TENDER Visits 0 Evaluation Information Evaluation Date 11/15/20 PT-OP-B Current Condition Start: 11/15/20 17:00 Freq: Status: Active Protocol: Document 11/15/20 16:00 DCW (Rec: 11/15/20 17:20 DCW [id number]) Current Condition History of Current Condition Onset Date 11/09/20 Current Complaints CVA, weakness, imbalance History of Current Condition Pt is a 65 year old male six days s/p CVA. Pt came to [facility] ED on 11/09/20 with multiple falls, confusion , left-sided weakness, left facial droop, and sudden loss of taste. MRI showed restricted diffusion of R frontal, parietal, and occipital lobes, and pt was diagnosed with a CVA. Attending physician attempted to transfer pt to [facility] for treatment, however pt at that time refused and left the hospital AMA. Pt followed up with his PCP on 11/11/20, who referred him to PT for stroke rehab. Pt arrives to PT in a wheelchair. Notes he frequently walks without an assistive device at home, however uses his for stability. Pt reports his balance has been affected, and his left side is weak. Pt notes no sensory changes in his left side, but is unsure if he has noticed any visual changes. Prior Treatments and Tests Brain MRI: IMPRESSION: 1. Extensive restricted diffusion within the right frontal and parietal occipital lobes, consistent with acute/subacute ischemia. 2. Loss of signal within the distal right M1 segment on [id number] images most consistent with occlusion, although slow flow cannot be definitively excluded. CTA is recommended as indicated. 3. No areas of hemodynamically significant stenosis, vascular occlusion or aneurysmal dilation within the neck vasculature. Per: Rajani Mariano M.D. on 2020 Head/Neck CTA: IMPRESSION: 1. Acute/subacute right frontal and right parietal infarcts. 2 . No intracranial hemorrhage. 3. Partially occlusive thrombus in the distal M1 segment of the right middle cerebral artery with reduced flow in the M2 branches of the right middle cerebral artery distal to the thrombus. 4. Less than 50% stenosis of the origins of the internal carotid arteries. Area 5. Vertebral arteries are fully patent. Per: Abi Garcia MD, PhD on 11/09/2020 Treatment Goals Patient/Caregiver Goals Pt wants to get back to mobilizing independently. Prior Functional Status Baseline Function- ADL's Independent Baseline Function- Mobility Independent PT-OP-C Subjective Start: 11/15/20 17:20 Freq: Status: Active Protocol: Document 12/23/20 10:33 DCW (Rec: 12/23/20 11:10 DCW [id number]) OP-PT Subjective Patient Comments Patient Comments Pt doing well today, but feels like he is already tired from all his other activities at this time, and would like to try some earlier appointments. PT-OP-D Balance Start: 11/15/20 17:00 Freq: Status: Active Protocol: Document 11/17/20 11:15 DCW (Rec: 11/17/20 12:10 DCW [id number]) Balance Tests Burgess Balance Test Burgess Balance Test Score 43/56 Single Limb Standing Single Limb- Right 18 sec Single Limb- Left 2 sec Burgess Balance Assessment Evaluation Sitting to Standing Ability Independent w/out Hands Unsupported Stance Supervision- 2 minutes Sitting Unsupported, Feet on Floor Safely- 2 minutes Standing to Sitting Ability Assist, Control w/Hands Transfer Ability Safely, Minimal Hand Use Unsupported Stance- Eyes Closed Safely, 10 seconds Unsupported Stance- Eyes Open Independent, 1 minute Reaching Forward Standing Safely, 2 inches Pick- Up Object From Floor Independent/Safe Look Behind Shoulder - Standing Shifts Weight Unilateral Turning 360 Degrees Turns slowly, but safely Unsupported Stance, Alternating Feet on 4 Steps w/Supervision Stair Unsupported Tandem Stance Holds Tandem- 30 seconds Unilateral Leg Stance Lifts Leg/Unable to Hold Total Score Burgess Total Score (out of 56 points) 43 Burgess Impairment Rating 20 to 39% Impaired (Score 34- 44) PT-OP-E Functional Tests Start: 11/15/20 17:00 Freq: Status: Active Protocol: Document 11/17/20 11:15 DCW (Rec: 11/17/20 12:10 DCW [id number]) Functional Tests Timed Up and Go (TUG) Score 18.76 Comments 3-trial average (17.89, 19.08, 19.32) TUG Impairment Rating 80 to <100% Impaired (Score 18 -19) PT-OP-G Mobility & Gait Start: 11/15/20 17:00 Freq: Status: Active Protocol: Document 11/15/20 16:00 DCW (Rec: 11/15/20 17:20 DCW [id number]) OP Mobility Evaluation Transfers Sit to Stand SBA, Pt required verbal cues to move footrests on w/c OP Gait Assessment Gait Gait Assistance Required: Minimum Assistance Distance (Feet) 10 Able to Maintain Weight Bearing Status Yes During Gait Assistive Devices Assistive Device None,Gait Belt,Large Based Quad Cane,Front Wheeled Walker ,Julio C Walker Gait Deviations General Gait Pattern Antalgic,Ataxic,Decreased Stride Length,Decreased Feet Clearance,Flexed Trunk,Step-to Gait Factors Limiting Gait Function Factors Limiting Gait Function Abnormal Tonal Influences, Decreased Activity Tolerance, Decreased Strength, Incoordination,Poor Balance, Poor Safety Awareness Comments Gait Comments Pt ambulated out into the hallway using no AD, then repeated using FWW, Hemiwalker , and LBQC. Pt showed most stability and comfort with hemiwalker, followed by LBQC. Pt showed decreased safety with FWW and no AD. Ambulates with left drop foot. PT-OP-H Neuro Start: 11/15/20 17:20 Freq: Status: Active Protocol: Document 11/15/20 16:00 DCW (Rec: 11/15/20 17:22 DCW [id number]) Sensation Evaluation Gross Sensation Gross Sensation WNL Comments Summary Comments Left visual extinction Coordination Evaluation Lower Extremity Tests Left Alternate Heel to Knee; Heel to Toe Test Moderate Impairment Heel on [place]dwell Test Moderate Impairment Foot Tapping Test Severe Impairment PT-OP-M Strength Start: 11/15/20 17:00 Freq: Status: Active Protocol: Document 11/15/20 16:00 DCW (Rec: 11/15/20 17:20 DCW [id number]) Hip Strength Hip Manual Muscle Testing Right Flexion (L2) 5 Normal Extension (S1) 5 Normal Abduction 5 Normal Adduction 5 Normal External Rotation 5 Normal Internal Rotation 5 Normal Left Flexion (L2) 4 Good Extension (S1) 4- Good- Abduction 3 Fair Adduction 5 Normal External Rotation 4- Good- Internal Rotation 4- Good- Knee Strength Knee Manual Muscle Testing Right Flexion (S2) 5 Normal Extension (L3) 5 Normal Left Flexion (S2) 3+ Fair+ Extension (L3) 4- Good- Ankle/Foot Strength Ankle and Foot Manual Muscle Testing Right Dorsiflexion (L4) 5 Normal Plantarflexion (S1) 5 Normal Inversion 5 Normal Eversion (S1) 5 Normal Left Dorsiflexion (L4) 2 Poor Plantarflexion (S1) 2+ Poor+ Inversion 2 Poor Eversion (S1) 1 Trace PT-OP-Q Treatments Start: 11/15/20 17:00 Freq: Status: Active Protocol: Document 12/23/20 10:33 DCW (Rec: 12/23/20 11:10 DCW [id number]) Cardio Equipment Recumbent Elliptical (Tunezy) Duration (Minutes) 5 Resistance 4 Seat Position 9 Gym Equipment Shuttle Recovery Unilateral Heel Raises Details Left Resistance 37# Unilateral Squats Details Left Resistance 50# Shuttle Recovery Platform Stable Reps/Time x20 Bilateral Squats Resistance 100# Shuttle Recovery Platform Stable Reps/Time x20 Shuttle Balance Red Details WBOS Comments B UE then L UE support Therapeutic Exercises Sitting Exercises Ankle flexion Sitting Exercise Name DF, Inv, Ev Side left Resistance Lv 2 Equipment Used T-band Standing Exercises hip ext Side bilateral Resistance Yellow Equipment Used T-band Comments tall good posture, L foot cleareance hip abd Side bilateral Resistance Yellow Equipment Used T-band Comments cued tall posture, L foot clearance PT-OP-T Assessment and Plan Start: 11/15/20 17:00 Freq: Status: Active Protocol: Document 12/23/20 10:33 DCW (Rec: 12/23/20 11:10 DCW [id number]) Physical Therapy Assessment Impairments Impairments Activity Tolerance,Balance, Coordination,Functional Activities,Functional Mobility ,Gait,Posture,Soft Tissue Mobility,Strength,Tone, Transfers,Visual Motor Goals Three Impairment Pt dispalys left visual extinction with bilateral stimulus presentation Snf Goal (LTG) Pt to complete RIVERA chart reading with a maximum of 5 mistakes in less than 3 minutes. LTG Duration 02/13/21 Two Impairment Significant left-sided weakness limits pt independence Garage Hand Goal (LTG) Pt to increase L hip and knee MMT to at least 4/5 and ankle MMT to at least 3+/5 in all planes in order to increase independence with gait. LTG Duration 02/13/21 One Impairment Pt does not have an appropriate home exercse program Short Term Goal (STG) Pt to be independent and compliant with an appropriate HEP STG Duration 12/30/20 Assessment Summary Assessment Pt continues to improve with his balance, also advancing his LE strength Physical Therapy Plan Frequency and Duration Frequency of Treatment 2x/Week Duration of Treatment 90 days Plan of Care Start Date 11/15/20 Plan of Care End Date 02/13/21 Therapeutic Interventions Therapeutic Interventions Balance Training,Coordination Training,Gait Training,Home Exercise Program,Manual Therapy,Neuromuscular Re- education,Patient/Caregiver Education,Self-Care/Home Management,Sensory Integration ,Soft Tissue Mobilization, Therapeutic Activities, Therapeutic Exercises, Wheelchair Management Other Referrals/Consults Referrals/Consults Recommended Pt would likely greatly benefit from a referral to Occupational Therapy. Next Visit Focus/Plan Next Note Type Treatment Note Next Visit Plan Recheck HEP: seated TB HS curls, rows, initiated sit<> stands, stand hip abd/ ext, heel raises and progress gait using HW for safety home. POC: Strengthening, balance, and visual rehab exercises
--- NOTE | 2020-12-28 08:54 | PT.OTN ---
Current Diagnoses Cerebral infarction, unspecified (12/28/20) Foot drop, left foot (12/28/20) Paralytic gait (12/28/20) Other abnormalities of gait and mobility (12/28/20) Weakness (12/28/20) Physical Therapy Treatment Note PT-OP-A Visit Information Start: 11/15/20 17:00 Freq: Status: Active Protocol: Document 12/28/20 08:47 OF (Rec: 12/28/20 08:54 OF [email or web address]) Out-Patient Physical Therapy Visit Information Visit Information Visit Type Treatment Note Visit Start Time 08:05 Visit Stop Time 08:44 Total Visit Minutes 39 Visit Number 7 Evaluation Information Evaluation Date 11/15/20 PT-OP-B Current Condition Start: 11/15/20 17:00 Freq: Status: Active Protocol: Document 11/15/20 16:00 DCW (Rec: 11/15/20 17:20 DCW [id number]) Current Condition History of Current Condition Onset Date 11/09/20 Current Complaints CVA, weakness, imbalance History of Current Condition Pt is a 65 year old male six days s/p CVA. Pt came to [facility] ED on 11/09/20 with multiple falls, confusion , left-sided weakness, left facial droop, and sudden loss of taste. MRI showed restricted diffusion of R frontal, parietal, and occipital lobes, and pt was diagnosed with a CVA. Attending physician attempted to transfer pt to [facility] for treatment, however pt at that time refused and left the hospital AMA. Pt followed up with his PCP on 11/11/20, who referred him to for stroke rehab. Pt arrives to in a wheelchair. Notes he frequently walks without an assistive device at home, however uses his for stability. Pt reports his balance has been affected, and his left side is weak. Pt notes no sensory changes in his left side, but is unsure if he has noticed any visual changes. Prior Treatments and Tests Brain MRI: IMPRESSION: 1. Extensive restricted diffusion within the right frontal and parietal occipital lobes, consistent with acute/subacute ischemia. 2. Loss of signal within the distal right M1 segment on [id number] images most consistent with occlusion, although slow flow cannot be definitively excluded. CTA is recommended as indicated. 3. No areas of hemodynamically significant stenosis, vascular occlusion or aneurysmal dilation within the neck vasculature. Per: Rajani Mariano M.D. on 2020 Head/Neck CTA: IMPRESSION: 1. Acute/subacute right frontal and right parietal infarcts. 2 . No intracranial hemorrhage. 3. Partially occlusive thrombus in the distal M1 segment of the right middle cerebral artery with reduced flow in the M2 branches of the right middle cerebral artery distal to the thrombus. 4. Less than 50% stenosis of the origins of the internal carotid arteries. Area 5. Vertebral arteries are fully patent. Per: Abi Garcia MD, PhD on 11/09/2020 Treatment Goals Patient/Caregiver Goals Pt wants to get back to mobilizing independently. Prior Functional Status Baseline Function- ADL's Independent Baseline Function- Mobility Independent PT-OP-C Subjective Start: 11/15/20 17:20 Freq: Status: Active Protocol: Document 12/28/20 08:47 OF (Rec: 12/28/20 08:54 OF [email or web address]) OP-PT Subjective Patient Comments Patient Comments pt states he drove himself today Patient Reported Progress Same OP-PT Pain Assessment Pain Assessment Grid Paper Pain Assessment Grid Completed No: pt denies pain today PT-OP-D Balance Start: 11/15/20 17:00 Freq: Status: Active Protocol: Document 11/17/20 11:15 DCW (Rec: 11/17/20 12:10 DCW [id number]) Balance Tests Burgess Balance Test Burgess Balance Test Score 43/56 Single Limb Standing Single Limb- Right 18 sec Single Limb- Left 2 sec Burgess Balance Assessment Evaluation Sitting to Standing Ability Independent w/out Hands Unsupported Stance Supervision- 2 minutes Sitting Unsupported, Feet on Floor Safely- 2 minutes Standing to Sitting Ability Assist, Control w/Hands Transfer Ability Safely, Minimal Hand Use Unsupported Stance- Eyes Closed Safely, 10 seconds Unsupported Stance- Eyes Open Independent, 1 minute Reaching Forward Standing Safely, 2 inches Pick- Up Object From Floor Independent/Safe Look Behind Shoulder - Standing Shifts Weight Unilateral Turning 360 Degrees Turns slowly, but safely Unsupported Stance, Alternating Feet on 4 Steps w/Supervision Stair Unsupported Tandem Stance Holds Tandem- 30 seconds Unilateral Leg Stance Lifts Leg/Unable to Hold Total Score Burgess Total Score (out of 56 points) 43 Burgess Impairment Rating 20 to 39% Impaired (Score 34- 44) PT-OP-E Functional Tests Start: 11/15/20 17:00 Freq: Status: Active Protocol: Document 11/17/20 11:15 DCW (Rec: 11/17/20 12:10 DCW [id number]) Functional Tests Timed Up and Go (TUG) Score 18.76 Comments 3-trial average (17.89, 19.08, 19.32) TUG Impairment Rating 80 to <100% Impaired (Score 18 -19) PT-OP-G Mobility & Gait Start: 11/15/20 17:00 Freq: Status: Active Protocol: Document 11/15/20 16:00 DCW (Rec: 11/15/20 17:20 DCW [id number]) OP Mobility Evaluation Transfers Sit to Stand SBA, Pt required verbal cues to move footrests on w/c OP Gait Assessment Gait Gait Assistance Required: Minimum Assistance Distance (Feet) 10 Able to Maintain Weight Bearing Status Yes During Gait Assistive Devices Assistive Device None,Gait Belt,Large Based Quad Cane,Front Wheeled Walker ,Julio C Walker Gait Deviations General Gait Pattern Antalgic,Ataxic,Decreased Stride Length,Decreased Feet Clearance,Flexed Trunk,Step-to Gait Factors Limiting Gait Function Factors Limiting Gait Function Abnormal Tonal Influences, Decreased Activity Tolerance, Decreased Strength, Incoordination,Poor Balance, Poor Safety Awareness Comments Gait Comments Pt ambulated out into the hallway using no AD, then repeated using FWW, Hemiwalker , and LBQC. Pt showed most stability and comfort with hemiwalker, followed by LBQC. Pt showed decreased safety with FWW and no AD. Ambulates with left drop foot. PT-OP-H Neuro Start: 11/15/20 17:20 Freq: Status: Active Protocol: Document 11/15/20 16:00 DCW (Rec: 11/15/20 17:22 DCW [id number]) Sensation Evaluation Gross Sensation Gross Sensation WNL Comments Summary Comments Left visual extinction Coordination Evaluation Lower Extremity Tests Left Alternate Heel to Knee; Heel to Toe Test Moderate Impairment Heel on [place]dwell Test Moderate Impairment Foot Tapping Test Severe Impairment PT-OP-M Strength Start: 11/15/20 17:00 Freq: Status: Active Protocol: Document 11/15/20 16:00 DCW (Rec: 11/15/20 17:20 DCW [id number]) Hip Strength Hip Manual Muscle Testing Right Flexion (L2) 5 Normal Extension (S1) 5 Normal Abduction 5 Normal Adduction 5 Normal External Rotation 5 Normal Internal Rotation 5 Normal Left Flexion (L2) 4 Good Extension (S1) 4- Good- Abduction 3 Fair Adduction 5 Normal External Rotation 4- Good- Internal Rotation 4- Good- Knee Strength Knee Manual Muscle Testing Right Flexion (S2) 5 Normal Extension (L3) 5 Normal Left Flexion (S2) 3+ Fair+ Extension (L3) 4- Good- Ankle/Foot Strength Ankle and Foot Manual Muscle Testing Right Dorsiflexion (L4) 5 Normal Plantarflexion (S1) 5 Normal Inversion 5 Normal Eversion (S1) 5 Normal Left Dorsiflexion (L4) 2 Poor Plantarflexion (S1) 2+ Poor+ Inversion 2 Poor Eversion (S1) 1 Trace PT-OP-Q Treatments Start: 11/15/20 17:00 Freq: Status: Active Protocol: Document 12/28/20 08:47 OF (Rec: 12/28/20 08:54 OF [email or web address]) Cardio Equipment Recumbent Elliptical (M87) Duration (Minutes) 6 Resistance 4 Seat Position 9 Gym Equipment Shuttle Recovery Unilateral Heel Raises Details Left Resistance 37# Reps/Time 3x10 Unilateral Squats Details Left Resistance 50# Shuttle Recovery Platform Stable Reps/Time 2x15 Bilateral Squats Resistance 100# Shuttle Recovery Platform Stable Reps/Time 2x15 Therapeutic Exercises Sitting Exercises Ankle flexion Sitting Exercise Name DF, Inv, Ev Side left Resistance Lv 2 Equipment Used T-band Comments cues for controlled ROM Personal HEP Sitting Exercise Name HS curls and unilateral seated UE rows w/ TB Comments performed TB2 sit<> stands Sitting Exercise Name arms in front Reps/Minutes 3x5 Comments demo for increased weightshift ant improves efficiency Standing Exercises calf raises Standing Exercise Name added to HEP Equipment Used rail contact Reps/Minutes x10 Comments stable good form hip ext Side bilateral Reps/Minutes 2x10 Comments tall good posture, L foot cleareance hip abd Side bilateral Reps/Minutes 2x10 Comments cued tall posture, L foot clearance Gait Training Gait Activity level surfaces Device Used crutch Level of Assistance MIN Distance/Duration 3x100 Treatment Focus pushoff, attempting foot clearance Comments pt states he prefers crutch today, HW too large Pt advised to use AD and attend to L with mobility to reduce fall risk Self-Care/Home Management Treatment Education Patient Education Home Exercise Program Other Education pt advised to have someone drive him due to limited L sided awareness vs loss of L sided vision PT-OP-T Assessment and Plan Start: 11/15/20 17:00 Freq: Status: Active Protocol: Document 12/28/20 08:47 OF (Rec: 12/28/20 08:54 OF [email or web address]) Physical Therapy Assessment Rehab Potential Rehabilitation Potential Good Evaluation Complexity Number of Personal Factors/Comorbidities 1-2 Number of Body Systems Impaired 1-2 Clinical Presentation at Evaluation Stable Impairments Impairments Activity Tolerance,Balance, Coordination,Functional Activities,Functional Mobility ,Gait,Posture,Soft Tissue Mobility,Strength,Tone, Transfers,Visual Motor Goals Three Impairment Pt dispalys left visual extinction with bilateral stimulus presentation Denitrator Operator Goal (LTG) Pt to complete RIVERA chart reading with a maximum of 5 mistakes in less than 3 minutes. LTG Duration 02/13/21 Two Impairment Significant left-sided weakness limits pt independence Denitrator Operator Goal (LTG) Pt to increase L hip and knee MMT to at least 4/5 and ankle MMT to at least 3+/5 in all planes in order to increase independence with gait. LTG Duration 02/13/21 One Impairment Pt does not have an appropriate home exercse program Short Term Goal (STG) Pt to be independent and compliant with an appropriate HEP STG Duration 12/30/20 Progress Towards Goals Progress Towards Goals Progressing Toward Goals Assessment Summary Assessment Gildardo has limited L sided awareness, he reports no visual changes, can identify fingers at arms length with L eye only. He has difficulty pacing self and performing exercises as demonstrated today. Fatigues quickly with leg press. Physical Therapy Plan Frequency and Duration Frequency of Treatment 2x/Week Duration of Treatment 90 days Plan of Care Start Date 11/15/20 Plan of Care End Date 02/13/21 Therapeutic Interventions Therapeutic Interventions Balance Training,Coordination Training,Gait Training,Home Exercise Program,Manual Therapy,Neuromuscular Re- education,Patient/Caregiver Education,Self-Care/Home Management,Sensory Integration ,Soft Tissue Mobilization, Therapeutic Activities, Therapeutic Exercises, Wheelchair Management Next Visit Focus/Plan Next Note Type Treatment Note Next Visit Plan re assess HEP for rows, hand use, tband for LE. Unsure of L visual loss vs attention/ neglect. Re educate upon risks of driving self
--- NOTE | 2020-12-31 10:28 | PT.OTN ---
Current Diagnoses Cerebral infarction, unspecified (12/31/20) Foot drop, left foot (12/31/20) Paralytic gait (12/31/20) Other abnormalities of gait and mobility (12/31/20) Weakness (12/31/20) Physical Therapy Treatment Note PT-OP-A Visit Information Start: 11/15/20 17:00 Freq: Status: Active Protocol: Document 12/31/20 10:17 OF (Rec: 12/31/20 10:28 OF [email or web address]) Out-Patient Physical Therapy Visit Information Visit Information Visit Type Treatment Note Visit Start Time 09:45 Visit Stop Time 10:18 Total Visit Minutes 33 Visit Number 8 Evaluation Information Evaluation Date 11/15/20 PT-OP-B Current Condition Start: 11/15/20 17:00 Freq: Status: Active Protocol: Document 11/15/20 16:00 DCW (Rec: 11/15/20 17:20 DCW [id number]) Current Condition History of Current Condition Onset Date 11/09/20 Current Complaints CVA, weakness, imbalance History of Current Condition Pt is a 65 year old male six days s/p CVA. Pt came to [facility] ED on 11/09/20 with multiple falls, confusion , left-sided weakness, left facial droop, and sudden loss of taste. MRI showed restricted diffusion of R frontal, parietal, and occipital lobes, and pt was diagnosed with a CVA. Attending physician attempted to transfer pt to [facility] for treatment, however pt at that time refused and left the hospital AMA. Pt followed up with his PCP on 11/11/20, who referred him to for stroke rehab. Pt arrives to in a wheelchair. Notes he frequently walks without an assistive device at home, however uses his for stability. Pt reports his balance has been affected, and his left side is weak. Pt notes no sensory changes in his left side, but is unsure if he has noticed any visual changes. Prior Treatments and Tests Brain MRI: IMPRESSION: 1. Extensive restricted diffusion within the right frontal and parietal occipital lobes, consistent with acute/subacute ischemia. 2. Loss of signal within the distal right M1 segment on [id number] images most consistent with occlusion, although slow flow cannot be definitively excluded. CTA is recommended as indicated. 3. No areas of hemodynamically significant stenosis, vascular occlusion or aneurysmal dilation within the neck vasculature. Per: Rajani Mariano M.D. on 2020 Head/Neck CTA: IMPRESSION: 1. Acute/subacute right frontal and right parietal infarcts. 2 . No intracranial hemorrhage. 3. Partially occlusive thrombus in the distal M1 segment of the right middle cerebral artery with reduced flow in the M2 branches of the right middle cerebral artery distal to the thrombus. 4. Less than 50% stenosis of the origins of the internal carotid arteries. Area 5. Vertebral arteries are fully patent. Per: Abi Garcia MD, PhD on 11/09/2020 Treatment Goals Patient/Caregiver Goals Pt wants to get back to mobilizing independently. Prior Functional Status Baseline Function- ADL's Independent Baseline Function- Mobility Independent PT-OP-C Subjective Start: 11/15/20 17:20 Freq: Status: Active Protocol: Document 12/31/20 10:17 OF (Rec: 12/31/20 10:28 OF [email or web address]) OP-PT Subjective Patient Comments Patient Comments pt and report improved L LE function while performing tasks at home OP-PT Pain Assessment Pain Assessment Grid Paper Pain Assessment Grid Completed No: pt denies pain today PT-OP-D Balance Start: 11/15/20 17:00 Freq: Status: Active Protocol: Document 11/17/20 11:15 DCW (Rec: 11/17/20 12:10 DCW [id number]) Balance Tests Burgess Balance Test Burgess Balance Test Score 43/56 Single Limb Standing Single Limb- Right 18 sec Single Limb- Left 2 sec Burgess Balance Assessment Evaluation Sitting to Standing Ability Independent w/out Hands Unsupported Stance Supervision- 2 minutes Sitting Unsupported, Feet on Floor Safely- 2 minutes Standing to Sitting Ability Assist, Control w/Hands Transfer Ability Safely, Minimal Hand Use Unsupported Stance- Eyes Closed Safely, 10 seconds Unsupported Stance- Eyes Open Independent, 1 minute Reaching Forward Standing Safely, 2 inches Pick- Up Object From Floor Independent/Safe Look Behind Shoulder - Standing Shifts Weight Unilateral Turning 360 Degrees Turns slowly, but safely Unsupported Stance, Alternating Feet on 4 Steps w/Supervision Stair Unsupported Tandem Stance Holds Tandem- 30 seconds Unilateral Leg Stance Lifts Leg/Unable to Hold Total Score Burgess Total Score (out of 56 points) 43 Burgess Impairment Rating 20 to 39% Impaired (Score 34- 44) PT-OP-E Functional Tests Start: 11/15/20 17:00 Freq: Status: Active Protocol: Document 11/17/20 11:15 DCW (Rec: 11/17/20 12:10 DCW [id number]) Functional Tests Timed Up and Go (TUG) Score 18.76 Comments 3-trial average (17.89, 19.08, 19.32) TUG Impairment Rating 80 to <100% Impaired (Score 18 -19) PT-OP-G Mobility & Gait Start: 11/15/20 17:00 Freq: Status: Active Protocol: Document 11/15/20 16:00 DCW (Rec: 11/15/20 17:20 DCW [id number]) OP Mobility Evaluation Transfers Sit to Stand SBA, Pt required verbal cues to move footrests on w/c OP Gait Assessment Gait Gait Assistance Required: Minimum Assistance Distance (Feet) 10 Able to Maintain Weight Bearing Status Yes During Gait Assistive Devices Assistive Device None,Gait Belt,Large Based Quad Cane,Front Wheeled Walker ,Julio C Walker Gait Deviations General Gait Pattern Antalgic,Ataxic,Decreased Stride Length,Decreased Feet Clearance,Flexed Trunk,Step-to Gait Factors Limiting Gait Function Factors Limiting Gait Function Abnormal Tonal Influences, Decreased Activity Tolerance, Decreased Strength, Incoordination,Poor Balance, Poor Safety Awareness Comments Gait Comments Pt ambulated out into the hallway using no AD, then repeated using FWW, Hemiwalker , and LBQC. Pt showed most stability and comfort with hemiwalker, followed by LBQC. Pt showed decreased safety with FWW and no AD. Ambulates with left drop foot. PT-OP-H Neuro Start: 11/15/20 17:20 Freq: Status: Active Protocol: Document 11/15/20 16:00 DCW (Rec: 11/15/20 17:22 DCW [id number]) Sensation Evaluation Gross Sensation Gross Sensation WNL Comments Summary Comments Left visual extinction Coordination Evaluation Lower Extremity Tests Left Alternate Heel to Knee; Heel to Toe Test Moderate Impairment Heel on [place] Test Moderate Impairment Foot Tapping Test Severe Impairment PT-OP-M Strength Start: 11/15/20 17:00 Freq: Status: Active Protocol: Document 11/15/20 16:00 DCW (Rec: 11/15/20 17:20 DCW [id number]) Hip Strength Hip Manual Muscle Testing Right Flexion (L2) 5 Normal Extension (S1) 5 Normal Abduction 5 Normal Adduction 5 Normal External Rotation 5 Normal Internal Rotation 5 Normal Left Flexion (L2) 4 Good Extension (S1) 4- Good- Abduction 3 Fair Adduction 5 Normal External Rotation 4- Good- Internal Rotation 4- Good- Knee Strength Knee Manual Muscle Testing Right Flexion (S2) 5 Normal Extension (L3) 5 Normal Left Flexion (S2) 3+ Fair+ Extension (L3) 4- Good- Ankle/Foot Strength Ankle and Foot Manual Muscle Testing Right Dorsiflexion (L4) 5 Normal Plantarflexion (S1) 5 Normal Inversion 5 Normal Eversion (S1) 5 Normal Left Dorsiflexion (L4) 2 Poor Plantarflexion (S1) 2+ Poor+ Inversion 2 Poor Eversion (S1) 1 Trace PT-OP-Q Treatments Start: 11/15/20 17:00 Freq: Status: Active Protocol: Document 12/31/20 10:17 OF (Rec: 12/31/20 10:28 OF [email or web address]) Cardio Equipment Recumbent Elliptical ([employer]) Duration (Minutes) 6 Resistance 4 Seat Position 9 Therapeutic Exercises Sitting Exercises Ankle flexion Sitting Exercise Name DF, Inv, Ev Side left Resistance standing Comments cues for dorsiflexion with improved recruitment sit<> stands Sitting Exercise Name UE for assist Side bilateral Reps/Minutes 3x10 Comments demo for increased weightshift ant improves efficiency Standing Exercises Toe-taps Standing Exercise Name Toe-taps Side bilateral Reps/Minutes 3x10 calf raises Standing Exercise Name added to HEP Side bilateral Equipment Used rail contact Reps/Minutes x10 Comments stable good form Gait Training Gait Activity level surfaces Device Used crutch Level of Assistance MIN Distance/Duration 3x100 Treatment Focus pushoff, improving foot clearance Comments pt and advised to use HW for reduced fall risk due to limited L sided awareness Self-Care/Home Management Treatment Education Patient Education Home Exercise Program Other Education pt advised to have someone drive him due to limited L sided awareness vs loss of L sided vision PT-OP-T Assessment and Plan Start: 11/15/20 17:00 Freq: Status: Active Protocol: Document 12/31/20 10:17 OF (Rec: 12/31/20 10:28 OF [email or web address]) Physical Therapy Assessment Rehab Potential Rehabilitation Potential Good Evaluation Complexity Number of Personal Factors/Comorbidities 1-2 Number of Body Systems Impaired 1-2 Clinical Presentation at Evaluation Stable Impairments Impairments Activity Tolerance,Balance, Coordination,Functional Activities,Functional Mobility ,Gait,Posture,Soft Tissue Mobility,Strength,Tone, Transfers,Visual Motor Goals Three Impairment Pt dispalys left visual extinction with bilateral stimulus presentation Care Aid Goal (LTG) Pt to complete RIVERA chart reading with a maximum of 5 mistakes in less than 3 minutes. LTG Duration 02/13/21 Two Impairment Significant left-sided weakness limits pt independence Care Aid Goal (LTG) Pt to increase L hip and knee MMT to at least 4/5 and ankle MMT to at least 3+/5 in all planes in order to increase independence with gait. LTG Duration 02/13/21 One Impairment Pt does not have an appropriate home exercse program Short Term Goal (STG) Pt to be independent and compliant with an appropriate HEP STG Duration 12/30/20 Progress Towards Goals Progress Towards Goals Progressing Toward Goals Assessment Summary Assessment Pt has improved L LE function and gait pattern. Pt has poor L sided awareness while in clinic. Physical Therapy Plan Frequency and Duration Frequency of Treatment 1x/Week Duration of Treatment 90 days Plan of Care Start Date 11/15/20 Plan of Care End Date 02/13/21 Therapeutic Interventions Therapeutic Interventions Balance Training,Coordination Training,Gait Training,Home Exercise Program,Manual Therapy,Neuromuscular Re- education,Patient/Caregiver Education,Self-Care/Home Management,Sensory Integration ,Soft Tissue Mobilization, Therapeutic Activities, Therapeutic Exercises, Wheelchair Management Next Visit Focus/Plan Next Note Type Treatment Note Next Visit Plan progress L sided weightbearing , improve pushoff, foot clearance
--- NOTE | 2021-01-06 10:29 | PT.OTN ---
Current Diagnoses Cerebral infarction, unspecified (01/06/21) Foot drop, left foot (01/06/21) Paralytic gait (01/06/21) Other abnormalities of gait and mobility (01/06/21) Weakness (01/06/21) Physical Therapy Treatment Note PT-OP-A Visit Information Start: 11/15/20 17:00 Freq: Status: Active Protocol: Document 01/06/21 09:48 DCW (Rec: 01/06/21 10:29 DCW [id number]) Out-Patient Physical Therapy Visit Information Visit Information Visit Type Treatment Note Visit Note Shortened session to limit units billed Visit Start Time 09:48 Visit Stop Time 10:20 Total Visit Minutes 32 Visit Number 9 Number of TUBE DISPATCHER Visits 0 Evaluation Information Evaluation Date 11/15/20 PT-OP-B Current Condition Start: 11/15/20 17:00 Freq: Status: Active Protocol: Document 11/15/20 16:00 DCW (Rec: 11/15/20 17:20 DCW [id number]) Current Condition History of Current Condition Onset Date 11/09/20 Current Complaints CVA, weakness, imbalance History of Current Condition Pt is a 65 year old male six days s/p CVA. Pt came to [facility] ED on 11/09/20 with multiple falls, confusion , left-sided weakness, left facial droop, and sudden loss of taste. MRI showed restricted diffusion of R frontal, parietal, and occipital lobes, and pt was diagnosed with a CVA. Attending physician attempted to transfer pt to [facility] for treatment, however pt at that time refused and left the hospital AMA. Pt followed up with his PCP on 11/11/20, who referred him to PT for stroke rehab. Pt arrives to in a wheelchair. Notes he frequently walks without an assistive device at home, however uses his for stability. Pt reports his balance has been affected, and his left side is weak. Pt notes no sensory changes in his left side, but is unsure if he has noticed any visual changes. Prior Treatments and Tests Brain MRI: IMPRESSION: 1. Extensive restricted diffusion within the right frontal and parietal occipital lobes, consistent with acute/subacute ischemia. 2. Loss of signal within the distal right M1 segment on [id number] images most consistent with occlusion, although slow flow cannot be definitively excluded. CTA is recommended as indicated. 3. No areas of hemodynamically significant stenosis, vascular occlusion or aneurysmal dilation within the neck vasculature. Per: Rajani Mariano M.D. on 2020 Head/Neck CTA: IMPRESSION: 1. Acute/subacute right frontal and right parietal infarcts. 2 . No intracranial hemorrhage. 3. Partially occlusive thrombus in the distal M1 segment of the right middle cerebral artery with reduced flow in the M2 branches of the right middle cerebral artery distal to the thrombus. 4. Less than 50% stenosis of the origins of the internal carotid arteries. Area 5. Vertebral arteries are fully patent. Per: Abi Garcia MD, PhD on 11/09/2020 Treatment Goals Patient/Caregiver Goals Pt wants to get back to mobilizing independently. Prior Functional Status Baseline Function- ADL's Independent Baseline Function- Mobility Independent PT-OP-C Subjective Start: 11/15/20 17:20 Freq: Status: Active Protocol: Document 01/06/21 09:48 DCW (Rec: 01/06/21 10:29 DCW [id number]) OP-PT Subjective Patient Comments Patient Comments Pt reports he feels things are going well. PT-OP-D Balance Start: 11/15/20 17:00 Freq: Status: Active Protocol: Document 11/17/20 11:15 DCW (Rec: 11/17/20 12:10 DCW [id number]) Balance Tests Burgess Balance Test Burgess Balance Test Score 43/56 Single Limb Standing Single Limb- Right 18 sec Single Limb- Left 2 sec Burgess Balance Assessment Evaluation Sitting to Standing Ability Independent w/out Hands Unsupported Stance Supervision- 2 minutes Sitting Unsupported, Feet on Floor Safely- 2 minutes Standing to Sitting Ability Assist, Control w/Hands Transfer Ability Safely, Minimal Hand Use Unsupported Stance- Eyes Closed Safely, 10 seconds Unsupported Stance- Eyes Open Independent, 1 minute Reaching Forward Standing Safely, 2 inches Pick- Up Object From Floor Independent/Safe Look Behind Shoulder - Standing Shifts Weight Unilateral Turning 360 Degrees Turns slowly, but safely Unsupported Stance, Alternating Feet on 4 Steps w/Supervision Stair Unsupported Tandem Stance Holds Tandem- 30 seconds Unilateral Leg Stance Lifts Leg/Unable to Hold Total Score Burgess Total Score (out of 56 points) 43 Burgess Impairment Rating 20 to 39% Impaired (Score 34- 44) PT-OP-E Functional Tests Start: 11/15/20 17:00 Freq: Status: Active Protocol: Document 11/17/20 11:15 DCW (Rec: 11/17/20 12:10 DCW [id number]) Functional Tests Timed Up and Go (TUG) Score 18.76 Comments 3-trial average (17.89, 19.08, 19.32) TUG Impairment Rating 80 to <100% Impaired (Score 18 -19) PT-OP-G Mobility & Gait Start: 11/15/20 17:00 Freq: Status: Active Protocol: Document 11/15/20 16:00 DCW (Rec: 11/15/20 17:20 DCW [id number]) OP Mobility Evaluation Transfers Sit to Stand SBA, Pt required verbal cues to move footrests on w/c OP Gait Assessment Gait Gait Assistance Required: Minimum Assistance Distance (Feet) 10 Able to Maintain Weight Bearing Status Yes During Gait Assistive Devices Assistive Device None,Gait Belt,Large Based Quad Cane,Front Wheeled Walker ,Julio C Walker Gait Deviations General Gait Pattern Antalgic,Ataxic,Decreased Stride Length,Decreased Feet Clearance,Flexed Trunk,Step-to Gait Factors Limiting Gait Function Factors Limiting Gait Function Abnormal Tonal Influences, Decreased Activity Tolerance, Decreased Strength, Incoordination,Poor Balance, Poor Safety Awareness Comments Gait Comments Pt ambulated out into the hallway using no AD, then repeated using FWW, Hemiwalker , and LBQC. Pt showed most stability and comfort with hemiwalker, followed by LBQC. Pt showed decreased safety with FWW and no AD. Ambulates with left drop foot. PT-OP-H Neuro Start: 11/15/20 17:20 Freq: Status: Active Protocol: Document 11/15/20 16:00 DCW (Rec: 11/15/20 17:22 DCW [id number]) Sensation Evaluation Gross Sensation Gross Sensation WNL Comments Summary Comments Left visual extinction Coordination Evaluation Lower Extremity Tests Left Alternate Heel to Knee; Heel to Toe Test Moderate Impairment Heel on Caldwell Test Moderate Impairment Foot Tapping Test Severe Impairment PT-OP-M Strength Start: 11/15/20 17:00 Freq: Status: Active Protocol: Document 11/15/20 16:00 DCW (Rec: 11/15/20 17:20 DCW [id number]) Hip Strength Hip Manual Muscle Testing Right Flexion (L2) 5 Normal Extension (S1) 5 Normal Abduction 5 Normal Adduction 5 Normal External Rotation 5 Normal Internal Rotation 5 Normal Left Flexion (L2) 4 Good Extension (S1) 4- Good- Abduction 3 Fair Adduction 5 Normal External Rotation 4- Good- Internal Rotation 4- Good- Knee Strength Knee Manual Muscle Testing Right Flexion (S2) 5 Normal Extension (L3) 5 Normal Left Flexion (S2) 3+ Fair+ Extension (L3) 4- Good- Ankle/Foot Strength Ankle and Foot Manual Muscle Testing Right Dorsiflexion (L4) 5 Normal Plantarflexion (S1) 5 Normal Inversion 5 Normal Eversion (S1) 5 Normal Left Dorsiflexion (L4) 2 Poor Plantarflexion (S1) 2+ Poor+ Inversion 2 Poor Eversion (S1) 1 Trace PT-OP-Q Treatments Start: 11/15/20 17:00 Freq: Status: Active Protocol: Document 01/06/21 09:48 DCW (Rec: 01/06/21 10:29 DCW [id number]) Cardio Equipment Recumbent Stepper (Sci-Fit) Duration (Minutes) 6 Resistance 3 Seat Position 11 Gym Equipment Shuttle Recovery Unilateral Heel Raises Details Left Resistance 37# Reps/Time 3x10 Unilateral Squats Details Left Resistance 50# Shuttle Recovery Platform Stable Reps/Time 2x15 Bilateral Squats Resistance 100# Shuttle Recovery Platform Stable Reps/Time 2x15 Shuttle Balance Red Details WBOS Comments B UE then L UE support Therapeutic Exercises Sitting Exercises Ankle flexion Sitting Exercise Name DF, Inv, Ev Side left Resistance Lv 3 Equipment Used T-band Comments cues for dorsiflexion with improved recruitment Standing Exercises Toe-taps Standing Exercise Name Toe-taps Side bilateral Reps/Minutes 3x10 PT-OP-T Assessment and Plan Start: 11/15/20 17:00 Freq: Status: Active Protocol: Document 01/06/21 09:48 DCW (Rec: 01/06/21 10:29 DCW [id number]) Physical Therapy Assessment Impairments Impairments Activity Tolerance,Balance, Coordination,Functional Activities,Functional Mobility ,Gait,Posture,Soft Tissue Mobility,Strength,Tone, Transfers,Visual Motor Goals Three Impairment Pt dispalys left visual extinction with bilateral stimulus presentation Custodial Goal (LTG) Pt to complete RIVERA chart reading with a maximum of 5 mistakes in less than 3 minutes. LTG Duration 02/13/21 Two Impairment Significant left-sided weakness limits pt independence Custodial Goal (LTG) Pt to increase L hip and knee MMT to at least 4/5 and ankle MMT to at least 3+/5 in all planes in order to increase independence with gait. LTG Duration 02/13/21 One Impairment Pt does not have an appropriate home exercise program Short Term Goal (STG) Pt to be independent and compliant with an appropriate HEP STG Duration 12/30/20 Assessment Summary Assessment Pt doing better overall, still somewhat impulsive with gait. Physical Therapy Plan Frequency and Duration Frequency of Treatment 1x/Week Duration of Treatment 90 days Plan of Care Start Date 11/15/20 Plan of Care End Date 02/13/21 Therapeutic Interventions Therapeutic Interventions Balance Training,Coordination Training,Gait Training,Home Exercise Program,Manual Therapy,Neuromuscular Re- education,Patient/Caregiver Education,Self-Care/Home Management,Sensory Integration ,Soft Tissue Mobilization, Therapeutic Activities, Therapeutic Exercises, Wheelchair Management Next Visit Focus/Plan Next Note Type Treatment Note Next Visit Plan progress L sided weightbearing , improve pushoff, foot clearance
--- NOTE | 2021-01-12 10:21 | PT.OTN ---
Current Diagnoses Cerebral infarction, unspecified (01/12/21) Foot drop, left foot (01/12/21) Paralytic gait (01/12/21) Other abnormalities of gait and mobility (01/12/21) Weakness (01/12/21) Physical Therapy Treatment Note PT-OP-A Visit Information Start: 11/15/20 17:00 Freq: Status: Active Protocol: Document 01/12/21 09:45 DCW (Rec: 01/12/21 10:20 DCW [id number]) Out-Patient Physical Therapy Visit Information Visit Information Visit Type Treatment Note Visit Note Shortened session to limit units billed Visit Start Time 09:45 Visit Stop Time 10:20 Total Visit Minutes 35 Visit Number 10 Number of YARN TESTER Visits 0 Evaluation Information Evaluation Date 11/15/20 PT-OP-B Current Condition Start: 11/15/20 17:00 Freq: Status: Active Protocol: Document 11/15/20 16:00 DCW (Rec: 11/15/20 17:20 DCW [id number]) Current Condition History of Current Condition Onset Date 11/09/20 Current Complaints CVA, weakness, imbalance History of Current Condition Pt is a 65 year old male six days s/p CVA. Pt came to [facility] ED on 11/09/20 with multiple falls, confusion , left-sided weakness, left facial droop, and sudden loss of taste. MRI showed restricted diffusion of R frontal, parietal, and occipital lobes, and pt was diagnosed with a CVA. Attending physician attempted to transfer pt to [facility] for treatment, however pt at that time refused and left the hospital AMA. Pt followed up with his PCP on 11/11/20, who referred him to PT for stroke rehab. Pt arrives to PT in a wheelchair. Notes he frequently walks without an assistive device at home, however uses his for stability. Pt reports his balance has been affected, and his left side is weak. Pt notes no sensory changes in his left side, but is unsure if he has noticed any visual changes. Prior Treatments and Tests Brain MRI: IMPRESSION: 1. Extensive restricted diffusion within the right frontal and parietal occipital lobes, consistent with acute/subacute ischemia. 2. Loss of signal within the distal right M1 segment on [id number] images most consistent with occlusion, although slow flow cannot be definitively excluded. CTA is recommended as indicated. 3. No areas of hemodynamically significant stenosis, vascular occlusion or aneurysmal dilation within the neck vasculature. Per: Rajani Mariano M.D. on 2020 Head/Neck CTA: IMPRESSION: 1. Acute/subacute right frontal and right parietal infarcts. 2 . No intracranial hemorrhage. 3. Partially occlusive thrombus in the distal M1 segment of the right middle cerebral artery with reduced flow in the M2 branches of the right middle cerebral artery distal to the thrombus. 4. Less than 50% stenosis of the origins of the internal carotid arteries. Area 5. Vertebral arteries are fully patent. Per: Abi Garcia MD, PhD on 11/09/2020 Treatment Goals Patient/Caregiver Goals Pt wants to get back to mobilizing independently. Prior Functional Status Baseline Function- ADL's Independent Baseline Function- Mobility Independent PT-OP-C Subjective Start: 11/15/20 17:20 Freq: Status: Active Protocol: Document 01/12/21 09:45 DCW (Rec: 01/12/21 10:20 DCW [id number]) OP-PT Subjective Patient Comments Patient Comments Pt notes he has a busy day today, OT following PT, and then followed by a Dr tejada for his dry needling. PT-OP-D Balance Start: 11/15/20 17:00 Freq: Status: Active Protocol: Document 11/17/20 11:15 DCW (Rec: 11/17/20 12:10 DCW [id number]) Balance Tests Burgess Balance Test Burgess Balance Test Score 43/56 Single Limb Standing Single Limb- Right 18 sec Single Limb- Left 2 sec Burgess Balance Assessment Evaluation Sitting to Standing Ability Independent w/out Hands Unsupported Stance Supervision- 2 minutes Sitting Unsupported, Feet on Floor Safely- 2 minutes Standing to Sitting Ability Assist, Control w/Hands Transfer Ability Safely, Minimal Hand Use Unsupported Stance- Eyes Closed Safely, 10 seconds Unsupported Stance- Eyes Open Independent, 1 minute Reaching Forward Standing Safely, 2 inches Pick- Up Object From Floor Independent/Safe Look Behind Shoulder - Standing Shifts Weight Unilateral Turning 360 Degrees Turns slowly, but safely Unsupported Stance, Alternating Feet on 4 Steps w/Supervision Stair Unsupported Tandem Stance Holds Tandem- 30 seconds Unilateral Leg Stance Lifts Leg/Unable to Hold Total Score Burgess Total Score (out of 56 points) 43 Burgess Impairment Rating 20 to 39% Impaired (Score 34- 44) PT-OP-E Functional Tests Start: 11/15/20 17:00 Freq: Status: Active Protocol: Document 11/17/20 11:15 DCW (Rec: 11/17/20 12:10 DCW [id number]) Functional Tests Timed Up and Go (TUG) Score 18.76 Comments 3-trial average (17.89, 19.08, 19.32) TUG Impairment Rating 80 to <100% Impaired (Score 18 -19) PT-OP-G Mobility & Gait Start: 11/15/20 17:00 Freq: Status: Active Protocol: Document 11/15/20 16:00 DCW (Rec: 11/15/20 17:20 DCW [id number]) OP Mobility Evaluation Transfers Sit to Stand SBA, Pt required verbal cues to move footrests on w/c OP Gait Assessment Gait Gait Assistance Required: Minimum Assistance Distance (Feet) 10 Able to Maintain Weight Bearing Status Yes During Gait Assistive Devices Assistive Device None,Gait Belt,Large Based Quad Cane,Front Wheeled Walker ,Julio C Walker Gait Deviations General Gait Pattern Antalgic,Ataxic,Decreased Stride Length,Decreased Feet Clearance,Flexed Trunk,Step-to Gait Factors Limiting Gait Function Factors Limiting Gait Function Abnormal Tonal Influences, Decreased Activity Tolerance, Decreased Strength, Incoordination,Poor Balance, Poor Safety Awareness Comments Gait Comments Pt ambulated out into the hallway using no AD, then repeated using FWW, Hemiwalker , and LBQC. Pt showed most stability and comfort with hemiwalker, followed by LBQC. Pt showed decreased safety with FWW and no AD. Ambulates with left drop foot. PT-OP-H Neuro Start: 11/15/20 17:20 Freq: Status: Active Protocol: Document 11/15/20 16:00 DCW (Rec: 11/15/20 17:22 DCW [id number]) Sensation Evaluation Gross Sensation Gross Sensation WNL Comments Summary Comments Left visual extinction Coordination Evaluation Lower Extremity Tests Left Alternate Heel to Knee; Heel to Toe Test Moderate Impairment Heel on Caldwell Test Moderate Impairment Foot Tapping Test Severe Impairment PT-OP-M Strength Start: 11/15/20 17:00 Freq: Status: Active Protocol: Document 11/15/20 16:00 DCW (Rec: 11/15/20 17:20 DCW [id number]) Hip Strength Hip Manual Muscle Testing Right Flexion (L2) 5 Normal Extension (S1) 5 Normal Abduction 5 Normal Adduction 5 Normal External Rotation 5 Normal Internal Rotation 5 Normal Left Flexion (L2) 4 Good Extension (S1) 4- Good- Abduction 3 Fair Adduction 5 Normal External Rotation 4- Good- Internal Rotation 4- Good- Knee Strength Knee Manual Muscle Testing Right Flexion (S2) 5 Normal Extension (L3) 5 Normal Left Flexion (S2) 3+ Fair+ Extension (L3) 4- Good- Ankle/Foot Strength Ankle and Foot Manual Muscle Testing Right Dorsiflexion (L4) 5 Normal Plantarflexion (S1) 5 Normal Inversion 5 Normal Eversion (S1) 5 Normal Left Dorsiflexion (L4) 2 Poor Plantarflexion (S1) 2+ Poor+ Inversion 2 Poor Eversion (S1) 1 Trace PT-OP-Q Treatments Start: 11/15/20 17:00 Freq: Status: Active Protocol: Document 01/12/21 09:45 DCW (Rec: 01/12/21 10:20 DCW [id number]) Cardio Equipment Recumbent Elliptical ([email or web address]) Duration (Minutes) 6 Resistance 5 Seat Position 10 Gym Equipment Shuttle Recovery Unilateral Heel Raises Details Left Resistance 37# Reps/Time 3x10 Unilateral Squats Details Left Resistance 50# Shuttle Recovery Platform Stable Reps/Time 2x15 Bilateral Squats Resistance 100# Shuttle Recovery Platform Stable Reps/Time 2x15 Shuttle Balance Red Details WBOS Comments B UE then L UE support, horizontal visual scanning Therapeutic Exercises Sitting Exercises Ankle flexion Sitting Exercise Name DF, Inv, Ev Side left Resistance Lv 3 Equipment Used T-band Comments cues for dorsiflexion with improved recruitment Standing Exercises Toe-taps Standing Exercise Name Toe-taps Side bilateral Equipment Used Cones PT-OP-T Assessment and Plan Start: 11/15/20 17:00 Freq: Status: Active Protocol: Document 01/12/21 09:45 DCW (Rec: 01/12/21 10:20 DCW [id number]) Physical Therapy Assessment Impairments Impairments Activity Tolerance,Balance, Coordination,Functional Activities,Functional Mobility ,Gait,Posture,Soft Tissue Mobility,Strength,Tone, Transfers,Visual Motor Goals Three Impairment Pt dispalys left visual extinction with bilateral stimulus presentation Halfway Goal (LTG) Pt to complete RIVERA chart reading with a maximum of 5 mistakes in less than 3 minutes. LTG Duration 02/13/21 Two Impairment Significant left-sided weakness limits pt independence Electrical Project Engineer Goal (LTG) Pt to increase L hip and knee MMT to at least 4/5 and ankle MMT to at least 3+/5 in all planes in order to increase independence with gait. LTG Duration 02/13/21 One Impairment Pt does not have an appropriate home exercise program Short Term Goal (STG) Pt to be independent and compliant with an appropriate HEP STG Duration 12/30/20 Assessment Summary Assessment Pt showing better control and strength with left ankle Physical Therapy Plan Frequency and Duration Frequency of Treatment 1x/Week Duration of Treatment 90 days Plan of Care Start Date 11/15/20 Plan of Care End Date 02/13/21 Therapeutic Interventions Therapeutic Interventions Balance Training,Coordination Training,Gait Training,Home Exercise Program,Manual Therapy,Neuromuscular Re- education,Patient/Caregiver Education,Self-Care/Home Management,Sensory Integration ,Soft Tissue Mobilization, Therapeutic Activities, Therapeutic Exercises, Wheelchair Management Next Visit Focus/Plan Next Note Type Treatment Note Next Visit Plan progress L sided weightbearing , improve pushoff, foot clearance
--- NOTE | 2021-01-17 11:27 | PT.OTN ---
Current Diagnoses Cerebral infarction, unspecified (01/17/21) Foot drop, left foot (01/17/21) Paralytic gait (01/17/21) Other abnormalities of gait and mobility (01/17/21) Weakness (01/17/21) Physical Therapy Treatment Note PT-OP-A Visit Information Start: 11/15/20 17:00 Freq: Status: Active Protocol: Document 01/17/21 09:45 DCW (Rec: 01/17/21 11:27 DCW [id number]) Out-Patient Physical Therapy Visit Information Visit Information Visit Type Treatment Note Visit Start Time 09:45 Visit Stop Time 10:30 Total Visit Minutes 45 Visit Number 11 Number of BIOLOGICAL SCIENCE TECHNICIAN Visits 0 Evaluation Information Evaluation Date 11/15/20 PT-OP-B Current Condition Start: 11/15/20 17:00 Freq: Status: Active Protocol: Document 11/15/20 16:00 DCW (Rec: 11/15/20 17:20 DCW [id number]) Current Condition History of Current Condition Onset Date 11/09/20 Current Complaints CVA, weakness, imbalance History of Current Condition Pt is a 65 year old male six days s/p CVA. Pt came to [facility] ED on 11/09/20 with multiple falls, confusion , left-sided weakness, left facial droop, and sudden loss of taste. MRI showed restricted diffusion of R frontal, parietal, and occipital lobes, and pt was diagnosed with a CVA. Attending physician attempted to transfer pt to [facility] for treatment, however pt at that time refused and left the hospital AMA. Pt followed up with his PCP on 11/11/20, who referred him to for stroke rehab. Pt arrives to in a wheelchair. Notes he frequently walks without an assistive device at home, however uses his for stability. Pt reports his balance has been affected, and his left side is weak. Pt notes no sensory changes in his left side, but is unsure if he has noticed any visual changes. Prior Treatments and Tests Brain MRI: IMPRESSION: 1. Extensive restricted diffusion within the right frontal and parietal occipital lobes, consistent with acute/subacute ischemia. 2. Loss of signal within the distal right M1 segment on [id number] images most consistent with occlusion, although slow flow cannot be definitively excluded. CTA is recommended as indicated. 3. No areas of hemodynamically significant stenosis, vascular occlusion or aneurysmal dilation within the neck vasculature. Per: Rajani Mariano M.D. on 2020 Head/Neck CTA: IMPRESSION: 1. Acute/subacute right frontal and right parietal infarcts. 2 . No intracranial hemorrhage. 3. Partially occlusive thrombus in the distal M1 segment of the right middle cerebral artery with reduced flow in the M2 branches of the right middle cerebral artery distal to the thrombus. 4. Less than 50% stenosis of the origins of the internal carotid arteries. Area 5. Vertebral arteries are fully patent. Per: Abi Garcia MD, PhD on 11/09/2020 Treatment Goals Patient/Caregiver Goals Pt wants to get back to mobilizing independently. Prior Functional Status Baseline Function- ADL's Independent Baseline Function- Mobility Independent PT-OP-C Subjective Start: 11/15/20 17:20 Freq: Status: Active Protocol: Document 01/17/21 09:45 DCW (Rec: 01/17/21 11:27 DCW [id number]) OP-PT Subjective Patient Comments Patient Comments I really seem to tighten up on the left side after I've worked out and gett tired. PT-OP-D Balance Start: 11/15/20 17:00 Freq: Status: Active Protocol: Document 11/17/20 11:15 DCW (Rec: 11/17/20 12:10 DCW [id number]) Balance Tests Burgess Balance Test Brugess Balance Test Score 43/56 Single Limb Standing Single Limb- Right 18 sec Single Limb- Left 2 sec Burgess Balance Assessment Evaluation Sitting to Standing Ability Independent w/out Hands Unsupported Stance Supervision- 2 minutes Sitting Unsupported, Feet on Floor Safely- 2 minutes Standing to Sitting Ability Assist, Control w/Hands Transfer Ability Safely, Minimal Hand Use Unsupported Stance- Eyes Closed Safely, 10 seconds Unsupported Stance- Eyes Open Independent, 1 minute Reaching Forward Standing Safely, 2 inches Pick- Up Object From Floor Independent/Safe Look Behind Shoulder - Standing Shifts Weight Unilateral Turning 360 Degrees Turns slowly, but safely Unsupported Stance, Alternating Feet on 4 Steps w/Supervision Stair Unsupported Tandem Stance Holds Tandem- 30 seconds Unilateral Leg Stance Lifts Leg/Unable to Hold Total Score Burgess Total Score (out of 56 points) 43 Burgess Impairment Rating 20 to 39% Impaired (Score 34- 44) PT-OP-E Functional Tests Start: 11/15/20 17:00 Freq: Status: Active Protocol: Document 11/17/20 11:15 DCW (Rec: 11/17/20 12:10 DCW [id number]) Functional Tests Timed Up and Go (TUG) Score 18.76 Comments 3-trial average (17.89, 19.08, 19.32) TUG Impairment Rating 80 to <100% Impaired (Score 18 -19) PT-OP-G Mobility & Gait Start: 11/15/20 17:00 Freq: Status: Active Protocol: Document 11/15/20 16:00 DCW (Rec: 11/15/20 17:20 DCW [id number]) OP Mobility Evaluation Transfers Sit to Stand SBA, Pt required verbal cues to move footrests on w/c OP Gait Assessment Gait Gait Assistance Required: Minimum Assistance Distance (Feet) 10 Able to Maintain Weight Bearing Status Yes During Gait Assistive Devices Assistive Device None,Gait Belt,Large Based Quad Cane,Front Wheeled Walker ,Julio C Walker Gait Deviations General Gait Pattern Antalgic,Ataxic,Decreased Stride Length,Decreased Feet Clearance,Flexed Trunk,Step-to Gait Factors Limiting Gait Function Factors Limiting Gait Function Abnormal Tonal Influences, Decreased Activity Tolerance, Decreased Strength, Incoordination,Poor Balance, Poor Safety Awareness Comments Gait Comments Pt ambulated out into the hallway using no AD, then repeated using FWW, Hemiwalker , and LBQC. Pt showed most stability and comfort with hemiwalker, followed by LBQC. Pt showed decreased safety with FWW and no AD. Ambulates with left drop foot. PT-OP-H Neuro Start: 11/15/20 17:20 Freq: Status: Active Protocol: Document 11/15/20 16:00 DCW (Rec: 11/15/20 17:22 DCW [id number]) Sensation Evaluation Gross Sensation Gross Sensation WNL Comments Summary Comments Left visual extinction Coordination Evaluation Lower Extremity Tests Left Alternate Heel to Knee; Heel to Toe Test Moderate Impairment Heel on [place]dwell Test Moderate Impairment Foot Tapping Test Severe Impairment PT-OP-M Strength Start: 11/15/20 17:00 Freq: Status: Active Protocol: Document 11/15/20 16:00 DCW (Rec: 11/15/20 17:20 DCW [id number]) Hip Strength Hip Manual Muscle Testing Right Flexion (L2) 5 Normal Extension (S1) 5 Normal Abduction 5 Normal Adduction 5 Normal External Rotation 5 Normal Internal Rotation 5 Normal Left Flexion (L2) 4 Good Extension (S1) 4- Good- Abduction 3 Fair Adduction 5 Normal External Rotation 4- Good- Internal Rotation 4- Good- Knee Strength Knee Manual Muscle Testing Right Flexion (S2) 5 Normal Extension (L3) 5 Normal Left Flexion (S2) 3+ Fair+ Extension (L3) 4- Good- Ankle/Foot Strength Ankle and Foot Manual Muscle Testing Right Dorsiflexion (L4) 5 Normal Plantarflexion (S1) 5 Normal Inversion 5 Normal Eversion (S1) 5 Normal Left Dorsiflexion (L4) 2 Poor Plantarflexion (S1) 2+ Poor+ Inversion 2 Poor Eversion (S1) 1 Trace PT-OP-Q Treatments Start: 11/15/20 17:00 Freq: Status: Active Protocol: Document 01/17/21 09:45 DCW (Rec: 01/17/21 11:27 DCW [id number]) Cardio Equipment Recumbent Elliptical (Biodex) Duration (Minutes) 6 Resistance 5 Seat Position 10 Gym Equipment Shuttle Recovery Unilateral Heel Raises Details Left Resistance 37# Reps/Time 3x10 Unilateral Squats Details Left Resistance 50# Shuttle Recovery Platform Stable Reps/Time 2x15 Bilateral Squats Resistance 100# Shuttle Recovery Platform Stable Reps/Time 2x15 Shuttle Balance Red Details WBOS Comments Wide SABRA, Staggered Therapeutic Exercises Sitting Exercises Ankle flexion Sitting Exercise Name DF, Inv, Ev Side left Resistance Lv 3 Equipment Used T-band Comments cues for dorsiflexion with improved recruitment Standing Exercises Hamstring curls Standing Exercise Name HS curls Side bilateral Resistance 5# hip ext Side bilateral Resistance Green Equipment Used T-band Reps/Minutes 2x10 Comments tall good posture, L foot cleareance hip abd Side bilateral Resistance Green Equipment Used T-band Reps/Minutes 2x10 Comments cued tall posture, L foot clearance Neuro Re-Education Treatment Balance Activities 2 Details SLS Equipment @ rail 1 Details Foam stance Surface Alejo foam PT-OP-T Assessment and Plan Start: 11/15/20 17:00 Freq: Status: Active Protocol: Document 01/17/21 09:45 DCW (Rec: 01/17/21 11:27 DCW [id number]) Physical Therapy Assessment Impairments Impairments Activity Tolerance,Balance, Coordination,Functional Activities,Functional Mobility ,Gait,Posture,Soft Tissue Mobility,Strength,Tone, Transfers,Visual Motor Goals Three Impairment Pt dispalys left visual extinction with bilateral stimulus presentation Oil Well Logger Goal (LTG) Pt to complete RIVERA chart reading with a maximum of 5 mistakes in less than 3 minutes. LTG Duration 02/13/21 Two Impairment Significant left-sided weakness limits pt independence Mcc Goal (LTG) Pt to increase L hip and knee MMT to at least 4/5 and ankle MMT to at least 3+/5 in all planes in order to increase independence with gait. LTG Duration 02/13/21 One Impairment Pt does not have an appropriate home exercise program Short Term Goal (STG) Pt to be independent and compliant with an appropriate HEP STG Duration 12/30/20 Assessment Summary Assessment Pt improving with activity tolerance, still very impulsive with decreased safety awareness Physical Therapy Plan Frequency and Duration Frequency of Treatment 1x/Week Duration of Treatment 90 days Plan of Care Start Date 11/15/20 Plan of Care End Date 02/13/21 Therapeutic Interventions Therapeutic Interventions Balance Training,Coordination Training,Gait Training,Home Exercise Program,Manual Therapy,Neuromuscular Re- education,Patient/Caregiver Education,Self-Care/Home Management,Sensory Integration ,Soft Tissue Mobilization, Therapeutic Activities, Therapeutic Exercises, Wheelchair Management Next Visit Focus/Plan Next Note Type Treatment Note Next Visit Plan progress L sided weightbearing , improve pushoff, foot clearance
--- NOTE | 2021-01-24 10:30 | PT.OTN ---
Current Diagnoses Cerebral infarction, unspecified (01/24/21) Foot drop, left foot (01/24/21) Paralytic gait (01/24/21) Other abnormalities of gait and mobility (01/24/21) Weakness (01/24/21) Physical Therapy Treatment Note PT-OP-A Visit Information Start: 11/15/20 17:00 Freq: Status: Active Protocol: Document 01/24/21 09:45 DCW (Rec: 01/24/21 10:30 DCW [id number]) Out-Patient Physical Therapy Visit Information Visit Information Visit Type Treatment Note Visit Start Time 09:45 Visit Stop Time 10:30 Total Visit Minutes 45 Visit Number 12 Number of DIRECTOR OF CLOUD SERVICES Visits 0 Evaluation Information Evaluation Date 11/15/20 PT-OP-B Current Condition Start: 11/15/20 17:00 Freq: Status: Active Protocol: Document 11/15/20 16:00 DCW (Rec: 11/15/20 17:20 DCW [id number]) Current Condition History of Current Condition Onset Date 11/09/20 Current Complaints CVA, weakness, imbalance History of Current Condition Pt is a 65 year old male six days s/p CVA. Pt came to [facility] ED on 11/09/20 with multiple falls, confusion , left-sided weakness, left facial droop, and sudden loss of taste. MRI showed restricted diffusion of R frontal, parietal, and occipital lobes, and pt was diagnosed with a CVA. Attending physician attempted to transfer pt to [facility] for treatment, however pt at that time refused and left the hospital AMA. Pt followed up with his PCP on 11/11/20, who referred him to for stroke rehab. Pt arrives to in a wheelchair. Notes he frequently walks without an assistive device at home, however uses his for stability. Pt reports his balance has been affected, and his left side is weak. Pt notes no sensory changes in his left side, but is unsure if he has noticed any visual changes. Prior Treatments and Tests Brain MRI: IMPRESSION: 1. Extensive restricted diffusion within the right frontal and parietal occipital lobes, consistent with acute/subacute ischemia. 2. Loss of signal within the distal right M1 segment on [id number] images most consistent with occlusion, although slow flow cannot be definitively excluded. CTA is recommended as indicated. 3. No areas of hemodynamically significant stenosis, vascular occlusion or aneurysmal dilation within the neck vasculature. Per: Rajani Mariano M.D. on 2020 Head/Neck CTA: IMPRESSION: 1. Acute/subacute right frontal and right parietal infarcts. 2 . No intracranial hemorrhage. 3. Partially occlusive thrombus in the distal M1 segment of the right middle cerebral artery with reduced flow in the M2 branches of the right middle cerebral artery distal to the thrombus. 4. Less than 50% stenosis of the origins of the internal carotid arteries. Area 5. Vertebral arteries are fully patent. Per: Abi Garcia MD, PhD on 11/09/2020 Treatment Goals Patient/Caregiver Goals Pt wants to get back to mobilizing independently. Prior Functional Status Baseline Function- ADL's Independent Baseline Function- Mobility Independent PT-OP-C Subjective Start: 11/15/20 17:20 Freq: Status: Active Protocol: Document 01/24/21 09:45 DCW (Rec: 01/24/21 10:30 DCW [id number]) OP-PT Subjective Patient Comments Patient Comments I'm here, that's half the ward. PT-OP-D Balance Start: 11/15/20 17:00 Freq: Status: Active Protocol: Document 11/17/20 11:15 DCW (Rec: 11/17/20 12:10 DCW [id number]) Balance Tests Burgess Balance Test Burgess Balance Test Score 43/56 Single Limb Standing Single Limb- Right 18 sec Single Limb- Left 2 sec Burgess Balance Assessment Evaluation Sitting to Standing Ability Independent w/out Hands Unsupported Stance Supervision- 2 minutes Sitting Unsupported, Feet on Floor Safely- 2 minutes Standing to Sitting Ability Assist, Control w/Hands Transfer Ability Safely, Minimal Hand Use Unsupported Stance- Eyes Closed Safely, 10 seconds Unsupported Stance- Eyes Open Independent, 1 minute Reaching Forward Standing Safely, 2 inches Pick- Up Object From Floor Independent/Safe Look Behind Shoulder - Standing Shifts Weight Unilateral Turning 360 Degrees Turns slowly, but safely Unsupported Stance, Alternating Feet on 4 Steps w/Supervision Stair Unsupported Tandem Stance Holds Tandem- 30 seconds Unilateral Leg Stance Lifts Leg/Unable to Hold Total Score Burgess Total Score (out of 56 points) 43 Burgess Impairment Rating 20 to 39% Impaired (Score 34- 44) PT-OP-E Functional Tests Start: 11/15/20 17:00 Freq: Status: Active Protocol: Document 11/17/20 11:15 DCW (Rec: 11/17/20 12:10 DCW [id number]) Functional Tests Timed Up and Go (TUG) Score 18.76 Comments 3-trial average (17.89, 19.08, 19.32) TUG Impairment Rating 80 to <100% Impaired (Score 18 -19) PT-OP-G Mobility & Gait Start: 11/15/20 17:00 Freq: Status: Active Protocol: Document 11/15/20 16:00 DCW (Rec: 11/15/20 17:20 DCW [id number]) OP Mobility Evaluation Transfers Sit to Stand SBA, Pt required verbal cues to move footrests on w/c OP Gait Assessment Gait Gait Assistance Required: Minimum Assistance Distance (Feet) 10 Able to Maintain Weight Bearing Status Yes During Gait Assistive Devices Assistive Device None,Gait Belt,Large Based Quad Cane,Front Wheeled Walker ,Julio C Walker Gait Deviations General Gait Pattern Antalgic,Ataxic,Decreased Stride Length,Decreased Feet Clearance,Flexed Trunk,Step-to Gait Factors Limiting Gait Function Factors Limiting Gait Function Abnormal Tonal Influences, Decreased Activity Tolerance, Decreased Strength, Incoordination,Poor Balance, Poor Safety Awareness Comments Gait Comments Pt ambulated out into the hallway using no AD, then repeated using FWW, Hemiwalker , and LBQC. Pt showed most stability and comfort with hemiwalker, followed by LBQC. Pt showed decreased safety with FWW and no AD. Ambulates with left drop foot. PT-OP-H Neuro Start: 11/15/20 17:20 Freq: Status: Active Protocol: Document 11/15/20 16:00 DCW (Rec: 11/15/20 17:22 DCW [id number]) Sensation Evaluation Gross Sensation Gross Sensation WNL Comments Summary Comments Left visual extinction Coordination Evaluation Lower Extremity Tests Left Alternate Heel to Knee; Heel to Toe Test Moderate Impairment Heel on Caldwell Test Moderate Impairment Foot Tapping Test Severe Impairment PT-OP-M Strength Start: 11/15/20 17:00 Freq: Status: Active Protocol: Document 11/15/20 16:00 DCW (Rec: 11/15/20 17:20 DCW [id number]) Hip Strength Hip Manual Muscle Testing Right Flexion (L2) 5 Normal Extension (S1) 5 Normal Abduction 5 Normal Adduction 5 Normal External Rotation 5 Normal Internal Rotation 5 Normal Left Flexion (L2) 4 Good Extension (S1) 4- Good- Abduction 3 Fair Adduction 5 Normal External Rotation 4- Good- Internal Rotation 4- Good- Knee Strength Knee Manual Muscle Testing Right Flexion (S2) 5 Normal Extension (L3) 5 Normal Left Flexion (S2) 3+ Fair+ Extension (L3) 4- Good- Ankle/Foot Strength Ankle and Foot Manual Muscle Testing Right Dorsiflexion (L4) 5 Normal Plantarflexion (S1) 5 Normal Inversion 5 Normal Eversion (S1) 5 Normal Left Dorsiflexion (L4) 2 Poor Plantarflexion (S1) 2+ Poor+ Inversion 2 Poor Eversion (S1) 1 Trace PT-OP-Q Treatments Start: 11/15/20 17:00 Freq: Status: Active Protocol: Document 01/24/21 09:45 DCW (Rec: 01/24/21 10:30 DCW [id number]) Cardio Equipment Recumbent Elliptical ([employer]) Duration (Minutes) 6 Resistance 5 Seat Position 10 Gym Equipment Shuttle Recovery Unilateral Heel Raises Details Left Resistance 37# Reps/Time 3x10 Unilateral Squats Details Left Resistance 50# Shuttle Recovery Platform Stable Reps/Time 2x15 Bilateral Squats Resistance 100# Shuttle Recovery Platform Stable Reps/Time 2x15 Shuttle Balance Red Details WBOS Comments Wide SABRA, Staggered Therapeutic Exercises Sitting Exercises Ankle flexion Sitting Exercise Name DF, Inv, Ev Side left Resistance Lv 3 Equipment Used T-band Comments cues for dorsiflexion with improved recruitment Standing Exercises hip ext Side bilateral Resistance Green Equipment Used T-band Reps/Minutes 2x10 Comments tall good posture, L foot cleareance hip abd Side bilateral Resistance Green Equipment Used T-band Reps/Minutes 2x10 Comments cued tall posture, L foot clearance Neuro Re-Education Treatment Balance Activities 2 Details SLS Equipment @ rail PT-OP-T Assessment and Plan Start: 11/15/20 17:00 Freq: Status: Active Protocol: Document 01/24/21 09:45 DCW (Rec: 01/24/21 10:30 DCW [id number]) Physical Therapy Assessment Impairments Impairments Activity Tolerance,Balance, Coordination,Functional Activities,Functional Mobility ,Gait,Posture,Soft Tissue Mobility,Strength,Tone, Transfers,Visual Motor Goals Three Impairment Pt dispalys left visual extinction with bilateral stimulus presentation Garnetter Goal (LTG) Pt to complete RIVERA chart reading with a maximum of 5 mistakes in less than 3 minutes. LTG Duration 02/13/21 Two Impairment Significant left-sided weakness limits pt independence Residential Goal (LTG) Pt to increase L hip and knee MMT to at least 4/5 and ankle MMT to at least 3+/5 in all planes in order to increase independence with gait. LTG Duration 02/13/21 One Impairment Pt does not have an appropriate home exercise program Short Term Goal (STG) Pt to be independent and compliant with an appropriate HEP STG Duration 12/30/20 Assessment Summary Assessment Pt did fairly well today, noticeable fatigue in left leg with most activity. Physical Therapy Plan Frequency and Duration Frequency of Treatment 1x/Week Duration of Treatment 90 days Plan of Care Start Date 11/15/20 Plan of Care End Date 02/13/21 Therapeutic Interventions Therapeutic Interventions Balance Training,Coordination Training,Gait Training,Home Exercise Program,Manual Therapy,Neuromuscular Re- education,Patient/Caregiver Education,Self-Care/Home Management,Sensory Integration ,Soft Tissue Mobilization, Therapeutic Activities, Therapeutic Exercises, Wheelchair Management Next Visit Focus/Plan Next Note Type Treatment Note Next Visit Plan progress L sided weightbearing , improve pushoff, foot clearance
--- NOTE | 2021-06-23 09:50 | PT.OPDS ---
Current Diagnoses Cerebral infarction, unspecified (01/24/21) Foot drop, left foot (01/24/21) Paralytic gait (01/24/21) Other abnormalities of gait and mobility (01/24/21) Weakness (01/24/21) Visit Care Team Role Provider Type Guevara Schneider DO Attending Provider Physician Primary Care Provider Referring Provider Specialty: [facility] Address: [address] [place] [address], [facility] Email: Visit Number Visit Number 12 Discharge Summary PT-OP-B Current Condition Start: 11/15/20 17:00 Freq: Status: Active Protocol: Document 11/15/20 16:00 DCW (Rec: 11/15/20 17:20 DCW [id number]) Current Condition History of Current Condition Onset Date 11/09/20 Current Complaints CVA, weakness, imbalance History of Current Condition Pt is a 65 year old male six days s/p CVA. Pt came to [facility] ED on 11/09/20 with multiple falls, confusion , left-sided weakness, left facial droop, and sudden loss of taste. MRI showed restricted diffusion of R frontal, parietal, and occipital lobes, and pt was diagnosed with a CVA. Attending physician attempted to transfer pt to [facility] for treatment, however pt at that time refused and left the hospital AMA. Pt followed up with his PCP on 11/11/20, who referred him to PT for stroke rehab. Pt arrives to in a wheelchair. Notes he frequently walks without an assistive device at home, however uses his for stability. Pt reports his balance has been affected, and his left side is weak. Pt notes no sensory changes in his left side, but is unsure if he has noticed any visual changes. Prior Treatments and Tests Brain MRI: IMPRESSION: 1. Extensive restricted diffusion within the right frontal and parietal occipital lobes, consistent with acute/subacute ischemia. 2. Loss of signal within the distal right M1 segment on [id number] images most consistent with occlusion, although slow flow cannot be definitively excluded. CTA is recommended as indicated. 3. No areas of hemodynamically significant stenosis, vascular occlusion or aneurysmal dilation within the neck vasculature. Per: Rajani Mariano M.D. on 2020 Head/Neck CTA: IMPRESSION: 1. Acute/subacute right frontal and right parietal infarcts. 2 . No intracranial hemorrhage. 3. Partially occlusive thrombus in the distal M1 segment of the right middle cerebral artery with reduced flow in the M2 branches of the right middle cerebral artery distal to the thrombus. 4. Less than 50% stenosis of the origins of the internal carotid arteries. Area 5. Vertebral arteries are fully patent. Per: Abi Garcia MD, PhD on 11/09/2020 Treatment Goals Patient/Caregiver Goals Pt wants to get back to mobilizing independently. Prior Functional Status Baseline Function- ADL's Independent Baseline Function- Mobility Independent PT-OP-C Subjective Start: 11/15/20 17:20 Freq: Status: Active Protocol: Document 01/24/21 09:45 DCW (Rec: 01/24/21 10:30 DCW [id number]) OP-PT Subjective Patient Comments Patient Comments I'm here, that's half the ward. PT-OP-D Balance Start: 11/15/20 17:00 Freq: Status: Active Protocol: Document 11/17/20 11:15 DCW (Rec: 11/17/20 12:10 DCW [id number]) Balance Tests Burgess Balance Test Burgess Balance Test Score 43/56 Single Limb Standing Single Limb- Right 18 sec Single Limb- Left 2 sec Burgess Balance Assessment Evaluation Sitting to Standing Ability Independent w/out Hands Unsupported Stance Supervision- 2 minutes Sitting Unsupported, Feet on Floor Safely- 2 minutes Standing to Sitting Ability Assist, Control w/Hands Transfer Ability Safely, Minimal Hand Use Unsupported Stance- Eyes Closed Safely, 10 seconds Unsupported Stance- Eyes Open Independent, 1 minute Reaching Forward Standing Safely, 2 inches Pick- Up Object From Floor Independent/Safe Look Behind Shoulder - Standing Shifts Weight Unilateral Turning 360 Degrees Turns slowly, but safely Unsupported Stance, Alternating Feet on 4 Steps w/Supervision Stair Unsupported Tandem Stance Holds Tandem- 30 seconds Unilateral Leg Stance Lifts Leg/Unable to Hold Total Score Burgess Total Score (out of 56 points) 43 Burgess Impairment Rating 20 to 39% Impaired (Score 34- 44) PT-OP-E Functional Tests Start: 11/15/20 17:00 Freq: Status: Active Protocol: Document 11/17/20 11:15 DCW (Rec: 11/17/20 12:10 DCW [id number]) Functional Tests Timed Up and Go (TUG) Score 18.76 Comments 3-trial average (17.89, 19.08, 19.32) TUG Impairment Rating 80 to <100% Impaired (Score 18 -19) PT-OP-G Mobility & Gait Start: 11/15/20 17:00 Freq: Status: Active Protocol: Document 11/15/20 16:00 DCW (Rec: 11/15/20 17:20 DCW [id number]) OP Mobility Evaluation Transfers Sit to Stand SBA, Pt required verbal cues to move footrests on w/c OP Gait Assessment Gait Gait Assistance Required: Minimum Assistance Distance (Feet) 10 Able to Maintain Weight Bearing Status Yes During Gait Assistive Devices Assistive Device None,Gait Belt,Large Based Quad Cane,Front Wheeled Walker ,Julio C Walker Gait Deviations General Gait Pattern Antalgic,Ataxic,Decreased Stride Length,Decreased Feet Clearance,Flexed Trunk,Step-to Gait Factors Limiting Gait Function Factors Limiting Gait Function Abnormal Tonal Influences, Decreased Activity Tolerance, Decreased Strength, Incoordination,Poor Balance, Poor Safety Awareness Comments Gait Comments Pt ambulated out into the hallway using no AD, then repeated using FWW, Hemiwalker , and LBQC. Pt showed most stability and comfort with hemiwalker, followed by LBQC. Pt showed decreased safety with FWW and no AD. Ambulates with left drop foot. PT-OP-H Neuro Start: 11/15/20 17:20 Freq: Status: Active Protocol: Document 11/15/20 16:00 DCW (Rec: 11/15/20 17:22 DCW [id number]) Sensation Evaluation Gross Sensation Gross Sensation WNL Comments Summary Comments Left visual extinction Coordination Evaluation Lower Extremity Tests Left Alternate Heel to Knee; Heel to Toe Test Moderate Impairment Heel on [place] Test Moderate Impairment Foot Tapping Test Severe Impairment PT-OP-M Strength Start: 11/15/20 17:00 Freq: Status: Active Protocol: Document 11/15/20 16:00 DCW (Rec: 11/15/20 17:20 DCW [id number]) Hip Strength Hip Manual Muscle Testing Right Flexion (L2) 5 Normal Extension (S1) 5 Normal Abduction 5 Normal Adduction 5 Normal External Rotation 5 Normal Internal Rotation 5 Normal Left Flexion (L2) 4 Good Extension (S1) 4- Good- Abduction 3 Fair Adduction 5 Normal External Rotation 4- Good- Internal Rotation 4- Good- Knee Strength Knee Manual Muscle Testing Right Flexion (S2) 5 Normal Extension (L3) 5 Normal Left Flexion (S2) 3+ Fair+ Extension (L3) 4- Good- Ankle/Foot Strength Ankle and Foot Manual Muscle Testing Right Dorsiflexion (L4) 5 Normal Plantarflexion (S1) 5 Normal Inversion 5 Normal Eversion (S1) 5 Normal Left Dorsiflexion (L4) 2 Poor Plantarflexion (S1) 2+ Poor+ Inversion 2 Poor Eversion (S1) 1 Trace PT-OP-T Assessment and Plan Start: 11/15/20 17:00 Freq: Status: Active Protocol: Document 06/23/21 09:49 DCW (Rec: 06/23/21 09:50 DCW [id number]) Physical Therapy Assessment Assessment Summary Assessment Pt canceled last three scheduled visits, did not reschedule, has now not been seen in more than four months. Pt will be discharged from skilled PT at this time, will require a new referral in order to return. Physical Therapy Plan Discharge Physical Therapy Discharge Reasons No Longer Attending PT Next Visit Focus/Plan Next Note Type Discharge Summary
== END 2021-06-27 13:35 ==
LOC: PHYS 09:45
PROVIDERS: PCP Family Medicine; Referring Provider Family Medicine; Visit Provider Family Medicine
DX: I63.9 Cerebral infarction, unspecified (principal); R53.1 Weakness; R26.89 Other abnormalities of gait and mobility; R26.1 Paralytic gait; M21.372 Foot drop, left foot
CPT/HCPCS: 97110; 97112; 97116; 97163

== ENCOUNTER 2021-01-26 09:30 | Outpatient (RCR) | payer OTHER, MEDICAID, SELFPAY ==
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
--- NOTE | 2021-01-12 11:39 | OT.OP.TRT ---
Visit Care Team Role Provider Type Guevara Schneider DO Attending Provider Physician Primary Care Provider Referring Provider Specialty: Family Practice Address: [address] [place] [address], [phone] Email: Occupational Therapy Treatment Note OT Outpatient Treatment Note - Adult Start: 01/03/21 09:28 Freq: Status: Active Protocol: Document 01/12/21 11:33 AMS (Rec: 01/12/21 11:39 AMS [id number]) OT Outpatient Adult Treatment Note Session Time Visit Start Time 10:30 Visit Stop Time 11:00 Total Visit Minutes 30 Visit Information Plan of Care Dates 01/03/21-03/28/21 Insurance Information [employer]; 8 visits w/ 3 billing codes per visit; limited ext Setting Treatment Setting Outpatient Care Visit Type Note Type Treatment Note General Information General Information Patient is a 65 year-old right hand dominant male presenting to outpatient OT s/p CVA. - Subjective Identification Type Name Identification Reconciled With Medical Record Observations This hand is really tight per Gildardo. - Objective Objective Measurements Please refer to below for progress towards meeting established OT goals. Short Term Goals 1. Patient will present with improved coordination of the left thumb to support in-hand manipulation abilities of the left hand; patient will be able to spin/rotate ball in hand, utilizing the left thumb , x 10 repetitions in both directions, without use of compensatory strategies, requiring supervision and modeling. 2. Patient will be able to translate various medium-sized objects from palm to fingertips x 10 trials with the left hand, without use of compensatory strategies, requiring supervision and modeling. 3. 0-85 degrees active L sh abduction. Correction Goals 1. Patient will be modified independent with upper extremity home exercise program utilizing provided written and visual instructions with support of family and friends. - Treatment 2 Descriptor Tone management. Weight bearing. TT. Weight shifting. TT push-up w/ min phys assist. 1 Descriptor Arm pulleys. 5 minutes. Seated . Exercises 1 Descriptor Finger/Thumb Strengthening. Finger extension. Thumb extension. Single rubberband. - Assessment Assessment of Improvement Treatment session x 30 minutes d/t insurance limitations. Patient complaint of tightness of hand; reviewed tone management with patient and spouse. Initiated weight bearing at TT and completing push-ups at TT level versus at floor level; informed PT that patient had gone down to floor level and had difficulty returning to upright position . PT to review w/ patient. Digit and thumb ext weakness. Some progress is being made towards est goals. Patient would likely benefit from skilled outpatient OT to address functional abilities, left upper extremity motor planning, left upper extremity awareness, object manipulation, weakness to maximize his ability to engage in meaningful activities. Further assessment of fine motor, kinesthetic awareness, sensation. Home Exercise Program Single rubberband finger ext and thumb ext strengthening. Provided rubberband for use and discussed modification of thumb ext strengthening. - Plan Therapy Recommendations Continue with Current Program, Advance per Rehabilitation Protocol
--- NOTE | 2021-01-19 15:36 | OT.OP.TRT ---
Visit Care Team Role Provider Type Guevara Schneiedr DO Attending Provider Physician Primary Care Provider Referring Provider Specialty: Family Practice Address: [address] [place] [address], [phone] Email: Occupational Therapy Treatment Note OT Outpatient Treatment Note - Adult Start: 01/03/21 09:28 Freq: Status: Active Protocol: Document 01/19/21 15:29 AMS (Rec: 01/19/21 15:35 AMS [id number]) OT Outpatient Adult Treatment Note Session Time Visit Start Time 09:30 Visit Stop Time 10:00 Total Visit Minutes 30 Visit Information Plan of Care Dates 01/03/21-03/28/21 Insurance Information [employer]; 8 visits w/ 3 billing codes per visit; limited ext Setting Treatment Setting Outpatient Care Visit Type Note Type Treatment Note General Information General Information Patient is a 65 year-old right hand dominant male presenting to outpatient OT s/p CVA. - Subjective Identification Type Name Identification Reconciled With Medical Record Observations This hand is really tight. I keep trying to work with it per Gildardo. My doctor did not talk to me about driving. - Objective Objective Measurements Please refer to below for progress towards meeting established OT goals. Short Term Goals 1. Patient will present with improved coordination of the left thumb to support in-hand manipulation abilities of the left hand; patient will be able to spin/rotate ball in hand, utilizing the left thumb , x 10 repetitions in both directions, without use of compensatory strategies, requiring supervision and modeling. 2. Patient will be able to translate various medium-sized objects from palm to fingertips x 10 trials with the left hand, without use of compensatory strategies, requiring supervision and modeling. 3. 0-85 degrees active L sh abduction. Penitentiary Goals 1. Patient will be modified independent with upper extremity home exercise program utilizing provided written and visual instructions with support of family and friends. - Treatment 3 Descriptor ROM. Sh ext combined with elbow ext, forearm supination and wrist/digit extension. 2 Descriptor Tone management. Weight bearing. TT. Weight shifting. TT push-up w/ min phys assist. Positioning of hand on wall. 1 Descriptor UEB. 5 minutes. Seated. Exercises 2 Descriptor Scapular protraction. TB #2. Seated. 3 sets of 10 repetitions. Bilateral execution. 1 Descriptor Finger/Thumb Strengthening. Finger extension. Thumb extension. Single rubberband. - Assessment Assessment of Improvement Treatment session x 30 minutes d/t insurance limitations. Patient continues to c/o tightness of hand; introduced ROM prior to attempt at weight bearing/tone management w/ use of wall. Introduced scapular protraction w/ elbow extension; cueing to support elbow extension w/ wall and scapular protraction exercise. Recommended having discussion w/ PCP re: return to driving; patient verbalized agreement. Patient demonstrates decreased safety awareness. Some progress is being made towards est goals. Patient would likely benefit from skilled outpatient OT to address functional abilities, left upper extremity motor planning, left upper extremity awareness, object manipulation, weakness to maximize his ability to engage in meaningful activities. Further assessment of fine motor, kinesthetic awareness, sensation. Home Exercise Program Provided written and visual instructions for 2 exercises. Reviewed in session. Answered all questions. Exercises to be scanning to EMR by front office agent staff when able. - Plan Therapy Recommendations Continue with Current Program, Advance per Rehabilitation Protocol
--- NOTE | 2021-01-26 10:28 | OT.OP.TRT ---
Visit Care Team Role Provider Type Guevara Schneider DO Attending Provider Physician Primary Care Provider Referring Provider Specialty: Family Practice Address: [address] [place] [address], [id number] Email: Occupational Therapy Treatment Note OT Outpatient Treatment Note - Adult Start: 01/03/21 09:28 Freq: Status: Active Protocol: Document 01/26/21 10:23 AMS (Rec: 01/26/21 10:28 AMS [id number]) OT Outpatient Adult Treatment Note Session Time Visit Start Time 09:30 Visit Stop Time 10:00 Total Visit Minutes 30 Visit Information Visit Number 6 units out of 24 units Plan of Care Dates 01/03/21-03/28/21 Insurance Information [facility] [employer]; 8 visits w/ 3 billing codes per visit; limited ext Setting Treatment Setting Outpatient Care Visit Type Note Type Treatment Note General Information General Information Patient is a 65 year-old right hand dominant male presenting to outpatient OT s/p CVA. - Subjective Identification Type Name Identification Reconciled With Medical Record Observations Gildardo was accompanied by his to treatment session. It is frustrating per Gildardo re: attempt to execute weight bearing at wall. - Objective Objective Measurements Please refer to below for progress towards meeting established OT goals. Short Term Goals 1. Patient will present with improved coordination of the left thumb to support in-hand manipulation abilities of the left hand; patient will be able to spin/rotate ball in hand, utilizing the left thumb , x 10 repetitions in both directions, without use of compensatory strategies, requiring supervision and modeling. 2. Patient will be able to translate various medium-sized objects from palm to fingertips x 10 trials with the left hand, without use of compensatory strategies, requiring supervision and modeling. 3. 0-85 degrees active L sh abduction. Power Plant Operator Goals 1. Patient will be modified independent with upper extremity home exercise program utilizing provided written and visual instructions with support of family and friends. - Treatment 3 Descriptor ROM. T-stretch supine. Supine cane exercises. Sh flex. 2x10. Sh hor abd/add. 2x10. PNF diagonal. 2x10. Sh hor abd/ER. 2x10. Chest press. 1x10. 2 Descriptor Tone management. Weight bearing. 1 Descriptor UEB. 5 minutes. Seated. Exercises 2 Descriptor Scapular protraction. TB #2. Seated. 3 sets of 10 repetitions. Bilateral execution. - Assessment Assessment of Improvement Treatment session x 30 minutes d/t insurance limitations. Instruction in supine 't' stretch and supine cane exercises; recommended carry- over of sh flex, sh hor abd/ add, sh hor abd/ER, chest press, and t-stretch. Education re: use of heat and positioning out of jorgito pattern. (+) patient response to supine exercises. Some progress is being made towards est goals. Patient would likely benefit from skilled outpatient OT to address functional abilities, left upper extremity motor planning, left upper extremity awareness, object manipulation, weakness to maximize his ability to engage in meaningful activities. Further assessment of fine motor, kinesthetic awareness, sensation. - Plan Therapy Recommendations Continue with Current Program, Advance per Rehabilitation Protocol
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
== END 2021-05-24 08:26 ==
LOC: OT 09:30
PROVIDERS: PCP Family Medicine; Referring Provider Family Medicine; Visit Provider Family Medicine
DX: R53.1 Weakness (principal); R27.8 Other lack of coordination
CPT/HCPCS: 97110; 97112; 97165

== ENCOUNTER → 2022-04-05 09:51 | Outpatient (CLI) | payer MEDICARE, MEDICAID, SELFPAY ==
[2022-04-05 10:41] LABS: Add Manual Diff / Slide Review NO; Basophils Absolute Auto 0 /uL (0-100); Basophils Percent Auto 0.3 % (0-2); Eosinophils Absolute Auto 0 /uL (0-450); Eosinophils Percent Auto 0.8 % (2-4); Hematocrit 44.4 % (41-53); Hemoglobin 15.4 g/dL (13.5-17.5); Lymphocytes Absolute Auto 2100 /uL (1100-4500); Lymphocytes Percent Auto 39.7 % (25-40); Mean Corpuscular HGB Conc 34.6 % (30-36); Mean Corpuscular Hemoglobin 31.6 PG (26-34); Mean Corpuscular Volume 91.3 fL (80-100); Monocytes Absolute Auto 300 /uL (0-900); Monocytes Percent Auto 6.3 % (3-14); Neutrophils Absolute Auto 2800 /uL (1500-7000); Neutrophils Percent Auto 52.9 % (50-75); Platelet Count 124 X10^3/uL (150-400); Red Blood Cell Count 4.87 X10^6/uL (4.5-5.9); Red Cell Distribution Width 13.7 % (11.6-14.8); White Blood Cell Count 5.4 X10^3/uL (4.5-11.0)
[2022-04-05 10:54] LABS: Hemoglobin A1C% w Est Avg Glu 5.4 % (4.0-6.0)
[2022-04-05 11:17] LABS: Alanine Aminotransferase 16 IU/L (<50); Albumin 4.3 g/dL (3.5-5.0); Albumin Globulin Ratio 1.4 (1.0-2.8); Alkaline Phosphatase 74 U/L (38-126); Aspartate Aminotransferase 25 IU/L (17-59); BUN Creatinine Ratio 17.3 (6-22); Bilirubin Total 0.7 mg/dL (0.2-1.3); Blood Urea Nitrogen 13 mg/dL (9-20); Calcium 8.8 mg/dL (8.4-10.2); Carbon Dioxide 28 mmol/L (22-32); Chloride 104 mmol/L (98-107); Cholesterol 220 mg/dL (140-199); Estimated Glomerular Filt Rate > 60 mL/min (>60); Glucose 87 mg/dL (80-110); HDL Cholesterol 49 mg/dL (40-60); HEMOLYSIS < 15 (0-50); LDL Cholesterol Calculated 147 mg/dL (<100); Potassium 4.3 mmol/L (3.4-5.1); Sodium 139 mmol/L (137-145); Total Protein 7.3 g/dL (6.3-8.2); Triglycerides 121 mg/dL (35-150)
[2022-04-05 11:24] LABS: TSH w/ Reflex to FT4 2.51 uIU/mL (0.47-4.68)
[2022-04-05 11:43] LABS: Prostate Specific Antigen Scrn 0.996 ng/mL (0.1-4.0)
== END ==
PROVIDERS: Family Medicine; PCP Family Medicine; Referring Provider Family Medicine; Visit Provider Family Medicine
DX: I10 Essential (primary) hypertension (principal); R42 Dizziness and giddiness; I63.9 Cerebral infarction, unspecified; Z12.5 Encounter for screening for malignant neoplasm of prostate; J44.9 Chronic obstructive pulmonary disease, unspecified
CPT/HCPCS: 36415; 80053; 80061; 83036; 84443; 85025; G0103

== ENCOUNTER → 2022-08-11 09:34 | Outpatient (CLI) | payer OTHER, MEDICAID, SELFPAY ==
[2022-08-11 11:47] LABS: Erythrocyte Sedimentation Rate 1 MM/HR (0-15)
[2022-08-11 12:05] LABS: C-Reactive Protein Quant 0.7 mg/dL (<1.0)
== END ==
PROVIDERS: PCP Family Medicine; Referring Provider Family Medicine; Visit Provider Family Medicine
DX: R42 Dizziness and giddiness (principal)
CPT/HCPCS: 36415; 85651; 86140